=== PATIENT | female | born 1935 | race Caucasian/White ===

== ENCOUNTER → 2017-11-19 | Outpatient (CLI) | payer OTHER ==
[~2017-11-19] MED LIST: ACETAMINOPHEN325 M1 PO; AZITHROMYCIN 2250 MG PO; BANOPHEN25 M1 PO; CEFDINIR300 MG PO; DOXYCYCLINE HYC50 MG PO; DUONEB 2.5-0.5 M3 ML INH; LISINOPRIL10 MG PO; MAXZIDE-25 MG1 EACH PO; MUCINEX600 MG PO; NEBULIZER; NITROGLYCERIN1 EACH TRANSDERM; OXYTROL3.9 MG/PAT TRANSDERM; PREDNISONE 20 M20 MG PO; PROAIR RESPICL90 MCG INH; SENNA-TIME S T1 EACH PO; SERTRALINE HCL50 MG PO; STIOLTO RESPIMAT4 GM INH; SYNTHROID150 MCG PO; VERAPAMIL E.R240 M1 PO
== END ==
LOC: RAD 11:42
DX: R06.00 Dyspnea, unspecified (principal)

== ENCOUNTER 2017-12-26 11:11 | Inpatient (IN) | payer OTHER ==
[~2017-12-26] VITALS: Ht 152.4 cm; Wt 65.3 kg
--- NOTE | ~2017-12-26 | D ---
[facility] [place] [address] DISCHARGE SUMMARY Name: VICKIE HAQUE Room #: 355-P [facility] IN M.R.#: [id number] Admission: 12/26/17 Attend Phys: Kt Garcias MD Discharge: 12/31/17 Date of : 31 Report #: [id number] THIS REPORT FOR: //name// CC: Kt Garcias FINAL DIAGNOSES: 1. Chronic obstructive pulmonary disease exacerbation. 2. Hypertension. HOSPITAL COURSE: The patient was admitted with shortness of breath. She was treated for COPD exacerbation with nebulized treatments and steroids, with empiric antibiotics. Chest x-ray was negative for pneumonia. The pulmonary service followed her as well. She had no other interval complication. By the time of discharge, she was back to her baseline oxygen requirement. PHYSICAL EXAMINATION: GENERAL: On the day of discharge, her vital signs were stable. LUNGS: Clear with no wheezing. HEART: Regular. ABDOMEN: Soft, normoactive bowel sounds. EXTREMITIES: No edema. DISPOSITION: She will be discharged to home with diet and activity as tolerated. Follow up with me and Dr. Barrera in 2 weeks. She will be on her usual medications with the exception of Maxzide, prednisone taper and doxycycline for 1 week. <ELECTRONICALLY SIGNED> By: Kt Garcias MD 12/31/17 1652 1003 1013 Kt Garcias MD /nt
--- NOTE | ~2017-12-26 | EKG ---
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 : 1935 Requested By: Katheryn Dejesus Order Number: [id number] MD: Gerard Menon Measurements Intervals [place] Rate: 97 P: 80 TX: 255 QRS: 44 QRSD: 78 T: 69 QT: 326 QTc: 414 Interpretive Statements Sinus rhythm Prolonged [place] interval Probable left atrial enlargement Compared to ECG 11/16/2007 11:05:56 First degree AV block now present Sinus tachycardia no longer present Poor R-wave progression no longer present Electronically Signed On 12-26-2017 21:59:49 CDT by Gerard Menon [email or web address] <ELECTRONICALLY SIGNED> By: Gerard Menon MD 12/26/17 2159 1122 1122 Gerard Menon MD /EPI
--- NOTE | ~2017-12-26 | HC ---
[facility] [place] [address] CONSULTATION Name: VICKIE HAQUE Room #: 355- ADM IN M.R.#: [id number] Admission: 12/26/17 Attend Phys: Kt Garcias MD Discharge: Date of : 31 Report #: [id number] THIS REPORT FOR: //name// CC: Kt Garcias PRIMARY CARE PHYSICIAN: Dr. Garcias. REASON FOR REFERRAL: Dyspnea. HISTORY OF PRESENT ILLNESS: The patient is a very pleasant 82-year-old white female who presented to the Emergency Room with dyspnea. A pulmonary consultation was requested. The patient is followed longitudinally by Dr. Barrera. She has been followed for emphysema and sleep apnea. The patient was in her usual state of health until last evening she started to develop upper respiratory tract congestion, dyspnea. This morning she was awoken with increasing dyspnea along with severe paroxysmal cough. For that reason, she presented to the Emergency Room. Otherwise, denies any recent febrile illness, sore throat, nausea, vomiting, diarrhea, hematemesis, hematochezia or melena. PAST MEDICAL HISTORY: Notable for COPD, moderate impairment, baseline FEV1 0.85 liters or 55% predicted, pulmonary hypertension, history of lung nodules. She also has a history of pulmonary hypertension, previous echocardiogram in 2015 showing PA pressure of 66, pulmonary lung nodules noted in 2013. PAST SURGICAL HISTORY: Include appendectomy, mastectomy, tonsillectomy. ALLERGIES: None to medications. HOME MEDICATIONS: List reviewed. This include ProAir 2 puffs p.r.n., Lipitor, Synthroid, Prinivil, Zoloft, Synthroid, Dyazide, Verelan, recent nystatin for oral thrush, Stiolto that was started recently. FAMILY HISTORY: Noncontributory. SOCIAL HISTORY: The patient has smoked for many years, quit in 1992. She denies any alcohol use. REVIEW OF SYSTEMS: As mentioned above, otherwise, a 10-point system review negative. PHYSICAL EXAMINATION: GENERAL: She is awake, alert, in no apparent distress. [facility] [address] [place] [address] CONSULTATION Name: VICKIE HAQUE Room #: [address] [place] [address] [place] [facility].#: [id number] Admission: 12/26/17 Attend Phys: Kt Garcias MD Discharge: Date of : 33 Report #: [id number] VITAL SIGNS: Temperature is 98 degrees Fahrenheit, pulse is 95, respiratory rate 20, blood pressure 140/62 mmHg, saturation 94%. HEENT: Unremarkable. NECK: Supple, without lymphadenopathy or thyromegaly. CHEST: Breath sounds are fair bilaterally. No obvious rales or wheezes. CARDIOVASCULAR: Normal S1, S2. No murmurs or gallop. There is no JVD. There is no carotid bruit. Pulses are 2+/4+ bilaterally. ABDOMEN: Soft, nontender, no organomegaly or masses felt. GENITOURINARY: Deferred. RECTAL: Deferred. EXTREMITIES: There is no edema, cyanosis or clubbing. LABORATORY DATA: Chest x-ray is clear. CT chest is clear. Electrolytes are normal. WBC is 6500, hemoglobin 12.1 without evidence of obvious bandemia. Eosinophil count is moderately elevated at 7%. Arterial blood gas revealed pH 7.35, pCO2 of 48, pO2 99 on 6 liters O2. The patient is on chronic O2. IMPRESSION AND PLAN: 1. Progressive dyspnea in this 82-year-old white female. The etiology is probably due to exacerbation of chronic obstructive pulmonary disease. No obvious evidence of pneumonia at this time, although cannot rule out early infectious process. 2. Ysjnu-dt-ddanhwn hypercapnic hypoxic respiratory failure. She is normally on 3-4 liters of O2 at home. 3. Chronic obstructive pulmonary disease exacerbation, moderately severe impairment. 4. 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 5. History of pulmonary nodules, dating back to 2012. 6. History of breast cancer, undergoing mastectomy more than 22 years ago. 7. Hypothyroidism. We recommend broad spectrum antibiotics, corticosteroids and bronchodilators. DVT and GI prophylaxis will be recommended. Obtain sputum culture if able. Thank you for this consultation. <ELECTRONICALLY SIGNED> By: Naif Santos MD 12/27/17 1510 1630 36 Naif Santos MD /nt
--- NOTE | ~2017-12-26 | H ---
[facility] [place] [address] HISTORY AND PHYSICAL Name: VICKIE HAQUE Room #: 355-P ADM IN .R.#: [id number] Admission: 12/26/17 Attend Phys: Kt Garcias MD Discharge: Date of : 33 Report #: [id number] THIS REPORT FOR: //name// CC: Kt Garcias DATE OF SERVICE: 12/26/2017 CHIEF COMPLAINT: Shortness of breath. HISTORY OF PRESENT ILLNESS: The patient is an 82-year-old female with a history of COPD, who came to the Emergency Room with a 2-day history of cough, congestion and wheezing. She has had more shortness of breath at home and has had to increase her normal home O2 from 3 liters up to 4 liters, she was very short of breath with any low level of exertion. She has had no fever or chills. PAST MEDICAL HISTORY: COPD, is O2 dependent on 3 liters. She had a history of pulmonary aneurysm and dissecting aorta, hypertension. PAST SURGICAL HISTORY: Mastectomy, , appendectomy, hysterectomy. FAMILY HISTORY: Noncontributory. SOCIAL HISTORY: Remote tobacco history, none currently. No alcohol use. ALLERGIES: No known drug allergies. MEDICATIONS: Lisinopril, Maxzide, verapamil, Zoloft, Synthroid, albuterol, Stiolto inhaler. REVIEW OF SYSTEMS: As above. She denies headache, chest pain, abdominal pain, nausea, vomiting, diarrhea, constipation, dysuria, syncope. OBJECTIVE: VITAL SIGNS: Temperature 36.5, pulse 97, respirations 18, blood pressure 103/50. GENERAL: She is awake and alert, in no distress. HEAD AND NECK: Unremarkable. LUNGS: Faint expiratory wheezes. HEART: Regular, no murmur. ABDOMEN: Soft, normoactive bowel sounds. EXTREMITIES: No edema. NEUROLOGIC: Cranial nerves intact. Speech is fluent. Motor strength is intact. LABORATORY DATA: Fairly unremarkable. [facility] [address] [place] [address] HISTORY AND PHYSICAL Name: VICKIE HAQUE Room #: [address] [place] [address] [place] [facility]#: [id number] Admission: 12/26/17 Attend Phys: Kt Garcias MD Discharge: Date of : 31 Report #: [id number] Chest x-ray shows interstitial fibrotic changes, appear similar. CT chest shows emphysematous changes without pneumonia. ASSESSMENT: 1. Chronic obstructive pulmonary disease exacerbation. 2. Etvkh-gu-lzfzphk hypoxic respiratory failure. 3. Hypertension. PLAN: We will continue medical treatment. Dr. Santos has seen her in consultation. I will see if in another day or two of steroids and nebulized treatments, if she is improved to early discharge home. <ELECTRONICALLY SIGNED> By: Kt Garcias MD 12/27/17 1130 0908 0938 Kt Garcias MD /nt
[2017-12-26 11:12] VITALS: BP 184/83
[2017-12-26 11:44] LABS: BE(vivo) 0.3 mmol/L (-2 to +3); HCO3 26.4 mmol/L (22.0-26.0); PCO2 48.8 mmHg (35.0-45.0); pH 7.351 (7.360-7.450); sO2 97.2 % (92.0-98.0)
[2017-12-26 11:51] LABS: ABSOLUTE NEUTROPHILS 4.3 thou/uL (1.4-8.2); BASOPHILS 0.3 % (0.0-2.0); EOSINOPHILS 7.2 % (0.0-3.0); HEMATOCRIT 36.7 % (37.0-47.0); HEMOGLOBIN 12.1 gm/dL (12.0-15.0); LYMPHOCYTES 17.5 % (24.0-44.0); MCH 28.3 pg (26.0-34.0); MCHC 33.1 g/dL (28.0-37.0); MCV 85.5 fL (80.0-100.0); MONOCYTES 8.5 % (1.0-8.0); PLATELET COUNT 168 thou/uL (150-400); POLYS 66.5 % (36.0-66.0); RBC 4.29 mil/uL (4.20-5.00); RDW 14.7 % (10.5-14.5); WBC 6.5 thou/uL (4.0-11.0)
[2017-12-26 11:57] LABS: CALCIUM 9.9 mg/dL (8.5-10.1); CREATININE 0.9 mg/dL (0.6-1.0); POTASSIUM 4.2 mmol/L (3.5-5.1)
[2017-12-26] MEDS ORDERED: LISINOPRIL10 MG PO (12:52)
[2017-12-26] MEDS ORDERED: SERTRALINE HCL50 MG PO (12:53)
[2017-12-26] MEDS ORDERED: VERAPAMIL E.R240 M1 PO (12:53)
[2017-12-26] MEDS ORDERED: SYNTHROID150 MCG PO (12:54)
[2017-12-26] MEDS ORDERED: PROAIR RESPICL90 MCG INH (12:55)
[2017-12-26] MEDS ORDERED: STIOLTO RESPIMAT4 GM INH (12:55)
[2017-12-26 13:16] VITALS: BP 184/83
[2017-12-26 15:29] VITALS: BP 145/62
[2017-12-26 15:32] VITALS: BP 136/78
[2017-12-26 20:10] VITALS: BP 111/42
[2017-12-27 04:15] VITALS: BP 118/59
[2017-12-27 05:52] LABS: HEMATOCRIT 35.6 % (37.0-47.0); HEMOGLOBIN 11.7 gm/dL (12.0-15.0); MCHC 32.8 g/dL (28.0-37.0); MCV 85.4 fL (80.0-100.0); RBC 4.17 mil/uL (4.20-5.00); RDW 14.6 % (10.5-14.5)
[2017-12-27 05:53] LABS: CALCIUM 10.2 mg/dL (8.5-10.1); CREATININE 1.1 mg/dL (0.6-1.0); POTASSIUM 4.1 mmol/L (3.5-5.1)
[2017-12-27 07:42] VITALS: BP 103/50
[2017-12-27 11:38] VITALS: BP 116/63
[2017-12-27 15:48] VITALS: BP 150/69
[2017-12-27 16:51] VITALS: BP 118/88
[2017-12-27 19:30] VITALS: BP 125/62
[2017-12-28 03:10] VITALS: BP 111/56
[2017-12-28 04:53] LABS: HEMATOCRIT 31.3 % (37.0-47.0); HEMOGLOBIN 10.5 gm/dL (12.0-15.0); MCH 28.4 pg (26.0-34.0); MCHC 33.5 g/dL (28.0-37.0); MCV 84.6 fL (80.0-100.0); RBC 3.71 mil/uL (4.20-5.00); RDW 14.4 % (10.5-14.5)
[2017-12-28 04:59] LABS: CALCIUM 10.1 mg/dL (8.5-10.1); CREATININE 1.1 mg/dL (0.6-1.0); POTASSIUM 4.7 mmol/L (3.5-5.1)
[2017-12-28 07:37] VITALS: BP 123/53
[2017-12-28 11:36] VITALS: BP 131/57
[2017-12-28 15:50] VITALS: BP 163/79
[2017-12-28 19:27] VITALS: BP 132/58
[2017-12-29 03:21] VITALS: BP 121/60
[2017-12-29 08:12] VITALS: BP 167/97
[2017-12-29 11:08] VITALS: BP 132/61
[2017-12-29 16:14] VITALS: BP 119/61
[2017-12-29 20:04] VITALS: BP 151/75
[2017-12-30 03:59] VITALS: BP 125/68
[2017-12-30 07:40] VITALS: BP 145/67
[2017-12-30 11:11] VITALS: BP 142/70
[2017-12-30 15:39] VITALS: BP 124/76
[2017-12-30 20:10] VITALS: BP 134/60
[2017-12-31 04:20] VITALS: BP 141/65
[2017-12-31 08:26] VITALS: BP 149/99
[2017-12-31] MEDS ORDERED: DOXYCYCLINE HYC50 MG PO (09:57)
[2017-12-31] MEDS ORDERED: PREDNISONE 20 M20 MG PO (09:59)
[2017-12-31 10:22] VITALS: BP 149/99
[2017-12-31] MEDS ORDERED: MAXZIDE-25 MG1 EACH PO (10:43)
[2017-12-31 12:16] VITALS: BP 117/57
[2017-12-31] MEDS ORDERED: NEBULIZER (13:07)
[2017-12-31] MEDS ORDERED: DUONEB 2.5-0.5 M3 ML INH (13:07)
[2017-12-31 14:00] VITALS: BP 117/57
== END 2017-12-31 15:00 | disposition home or self-care (01) | DRG 189 ==
LOC: ER 11:11 → EROBS 12:24 → 3W 12:24 → ENTRNSPT 12-31 14:44 → EDTRNSPTSTS 12-31 14:46 → 3W 12-31 15:00
PROVIDERS: Emergency Medicine; Internal Medicine Geriatric Medicine; Internal Medicine Pulmonary Disease
DX: J96.21 Acute and chronic respiratory failure with hypoxia (principal); J44.1 Chronic obstructive pulmonary disease with (acute) exacerbation; I27.20 Pulmonary hypertension, unspecified; J96.22 Acute and chronic respiratory failure with hypercapnia; I10 Essential (primary) hypertension; E03.9 Hypothyroidism, unspecified; E78.5 Hyperlipidemia, unspecified; Z85.3 Personal history of malignant neoplasm of breast; Z79.899 Other long term (current) drug therapy; Z91.018 Allergy to other foods; Z79.51 Long term (current) use of inhaled steroids; Z99.81 Dependence on supplemental oxygen; Z90.710 Acquired absence of both cervix and uterus; Z90.12 Acquired absence of left breast and nipple; Z86.79 Personal history of other diseases of the circulatory system
CPT/HCPCS: 10879

== ENCOUNTER 2018-02-04 04:00 | Inpatient (IN) | payer OTHER ==
[~2018-02-04] VITALS: Ht 149.9 cm; Wt 67.6 kg
--- NOTE | ~2018-02-04 | EKG ---
[address] [place] [address] ELECTROCARDIOGRAM REPORT Name: VICKIE HAQUE Room #: 351-P ADM IN M.R.#: [id number] Admission: 02/04/18 Attend Phys: Sierra Thornton MD Discharge: Date of : 33 Report #: [id number] THIS REPORT FOR: //name// [facility] Test Date: 2018-02-06 Test Time: 09:33:32 Pat Name: VICKIE HAQUE Department: Room: [facility] Gender: F Entry Level Lab Technician: Niurka SCHMITT : 1935 Requested By: Kt Garcias Order Number: [id number] MD: Gaurang Sosa Measurements Intervals [place] Rate: 96 P: 80 NC: 231 QRS: 63 QRSD: 79 T: 59 QT: 345 QTc: 436 Interpretive Statements Sinus rhythm Prolonged NC interval Probable left ventricular hypertrophy Compared to ECG 02/04/2018 04:13:54 Sinus tachycardia no longer present Electronically Signed On 02-06-2018 12:52:53 CDT by Gaurang Sosa [email or web address] <ELECTRONICALLY SIGNED> By: Gaurang Sosa MD, [facility] 02/06/18 1252 2 2 Gaurang Sosa MD, [facility] /EPI
--- NOTE | ~2018-02-04 | EKG ---
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
--- NOTE | ~2018-02-04 | 2DMMODE ---
[facility] [address] [place] [address] 2 D/M-MODE ECHOCARDIOGRAM Name: VICKIE HAQUE Room #: 351-P ADM IN .R.#: [id number] Admission: 02/04/18 Attend Phys: Mercy García Discharge: Date of : 31 Date of Service: 02/04/18 1425 Report #: [id number] THIS REPORT FOR: //name// APPROVED REPORT Study performed: 02/04/2018 13:18:52 EXAM: Comprehensive 2D, Doppler, and color-flow Echocardiogram Patient Location: Bedside Room #: [facility] Status: routine BSA: 1.63 HR: 101 bpm BP: 128/61 mmHg Rhythm: Tachycardia Other Information Study Quality: Adequate Indications COPD exacerbation, LV function. Hx: HTN, HLP 2D Dimensions RVDd: 37.31 mm LVEF(%): 79.71 (>50%) IVSd: 12.06 (7-11mm) LVOT Diam: 20.33 (18-24mm) LVDd: 43.76 mm PWd: 10.27 (7-11mm) Ascending Ao: 30.43 (22-36mm) LVDs: 22.72 (25-40mm) Aortic Root: 31.78 mm Moreno's LVEF: 79.71 % Volumes Left Atrial Volume (Systole) Single Plane 4CH: 40.91 mL Single Plane 2CH: 48.92 mL Aortic Valve AoV Peak Cuong.: 1.94 m/s AO Peak Gr.: 15.00 mmHg LVOT Max P.72 mmHg AO Mean Gr.: 8.21 mmHg AO V2 Mean: 1.35 m/s LVOT Max V: 1.48 m/s AO V2 VTI: 39.26 cm CARMEN Vmax: 2.47 cm2 Mitral Valve MV Decel. Time: 242.61 ms [facility] [email or web address] [address] 2 D/M-MODE ECHOCARDIOGRAM Name: SHABNAMVICKIE Room #: 351-P [facility] IN ..#: [id number] Admission: 02/04/18 Attend Phys: Mercy García Discharge: Date of : 31 Date of Service: 02/04/18 1425 Report #: [id number] MV PHT: 70.36 ms IVRT: 69.20 ms Pulmonary Valve PV Peak Cuong.: 1.17 m/s PV Peak Gr.: 5.44 mmHg Tricuspid Valve TR Peak Cuong.: 3.36 m/s RAP Estimate: 10.00 mmHg TR Peak Gr.: 45.21 mmHg PA Pressure: 55.00 mmHg Left Ventricle The left ventricle is normal size. Mild concentric left ventricular hypertrophy. Left ventricular systolic function is hyperdynamic. LVEF is 70%. Mild diastolic dysfunction is present (impaired relaxation pattern). Right Ventricle The right ventricle is normal size. The right ventricular systolic function is normal. Atria Left atrium is mildly dilated. The right atrium size is normal. Aortic Valve Aortic valve is calcified. No aortic regurgitation is present. There is no aortic valvular stenosis. Mitral Valve Severe mitral annular calcification. There is no mitral valve regurgitation noted. Moderate mitral stenosis. Mean presssure gradient of 10mmHg. Tricuspid Valve The tricuspid valve is normal in structure. Mild tricuspid regurgitation. Estimated PAP is 55-60mmHg. Pulmonic Valve The pulmonary valve is normal in structure. Trace pulmonic regurgitation. Great Vessels The aortic root is normal in size. The ascending aorta is normal in size. IVC is dilated and collapses <50% with inspiration. [facility] [address] [place] [address] 2 D/M-MODE ECHOCARDIOGRAM Name: VICKIE HAQUE Room #: 351-P [facility] IN .R.#: [id number] Admission: 02/04/18 Attend Phys: Mercy García Discharge: Date of : 31 Date of Service: 02/04/18 1425 Report #: [id number] Pericardium There is no pericardial effusion. <Conclusion> The left ventricle is normal size. LVEF is 70%. Left atrium is mildly dilated. Aortic valve is calcified. No aortic regurgitation is present. There is no aortic valvular stenosis. Severe mitral annular calcification. There is no mitral valve regurgitation noted. Moderate mitral stenosis. Mean presssure gradient of 10mmHg. The tricuspid valve is normal in structure. Mild tricuspid regurgitation. Estimated PAP is 55-60mmHg. The pulmonary valve is normal in structure. Trace pulmonic regurgitation. There is no pericardial effusion. <ELECTRONICALLY SIGNED> By: Reuben Herman MD 02/04/18 1425 1425 1425 Reuben Herman MD /INF
--- NOTE | ~2018-02-04 | H ---
[facility] [place] [address] HISTORY AND PHYSICAL Name: VICKIE HAQUE Room #: 351-P ADM IN M.R.#: [id number] Admission: 02/04/18 Attend Phys: Sierra Thornton MD Discharge: Date of : 33 Report #: [id number] THIS REPORT FOR: //name// CC: Femi Thornton DATE OF SERVICE: 02/04/2018 CHIEF COMPLAINT: Shortness of breath. HISTORY OF PRESENT ILLNESS: The patient is an 82-year-old female who came to the Emergency Room with complaints of shortness of breath and chest pain. She has been wheezing and coughing up occasional sputum in the last several days. She had high blood pressure and a headache as well. There was one episode of vomiting en route. She was noted to have respiratory acidosis on admission, and she was placed on BiPAP overnight. A followup ABG early this morning is improved, and she is awake and alert. PAST MEDICAL HISTORY: COPD, O2 dependent. Hypertension. I believe she has a history of PSVT. PAST SURGICAL HISTORY: She has had breast cancer, mastectomy 20+ years ago, appendectomy, hysterectomy. FAMILY HISTORY: Noncontributory. SOCIAL HISTORY: She lives at home. No chronic alcohol or tobacco use. ALLERGIES: No known drug allergies. MEDICATIONS: Lisinopril, verapamil, Zoloft, Levoxyl, DuoNeb, Stiolto inhaler, hydrochlorothiazide. REVIEW OF SYSTEMS: She has had no more chest pain or headache. She also has some shortness of breath and productive cough. No abdominal pain, nausea, vomiting, diarrhea, dysuria, syncope or fall. PHYSICAL EXAMINATION: VITAL SIGNS: Temperature 36.8, pulse 98, respirations 20, blood pressure 120/49, O2 sat 96% on 3 liters nasal cannula. GENERAL: She is awake and alert, in no distress. HEAD AND NECK: Unremarkable. LUNGS: Expiratory wheezing. HEART: Regular, no murmur. ABDOMEN: Soft, normoactive bowel sounds. [facility] [address] [place] [address] HISTORY AND PHYSICAL Name: VICKIE HAQUE Room #: [facility] IN M.R.#: [id number] Admission: 02/04/18 Attend Phys: Sierra Thornton MD Discharge: Date of : 33 Report #: [id number] EXTREMITIES: No edema. NEUROLOGIC: She is alert and oriented. Strength intact. Lab and chest x-ray reviewed. ASSESSMENT: 1. Acute chronic obstructive pulmonary disease exacerbation. 2. Acute hypoxic hypercapnic respiratory failure. 3. Hypertension. 4. Pulmonary fibrosis. PLAN: She will be treated conservatively with antibiotics, steroids, nebulized treatments. We will ask Dr. Barrera to see her in consultation. I have ordered an echo to assess LV function. Lovenox has been ordered for DVT prophylaxis. <ELECTRONICALLY SIGNED> By: Kt Garcias MD 02/04/18 1139 [phone] Kt Garcias MD /héctor
[~2018-02-04 04:00] MED LIST changes: -ACETAMINOPHEN325 M1 PO; -AZITHROMYCIN 2250 MG PO; -BANOPHEN25 M1 PO; -CEFDINIR300 MG PO; -MUCINEX600 MG PO; -NITROGLYCERIN1 EACH TRANSDERM; -OXYTROL3.9 MG/PAT TRANSDERM; -SENNA-TIME S T1 EACH PO
[2018-02-04 04:01] VITALS: BP 163/80
[2018-02-04 04:24] LABS: ABSOLUTE NEUTROPHILS 8.9 thou/uL (1.4-8.2); BASOPHILS 0.8 % (0.0-2.0); EOSINOPHILS 1.2 % (0.0-3.0); HEMATOCRIT 34.6 % (37.0-47.0); HEMOGLOBIN 11.4 gm/dL (12.0-15.0); MCH 28.3 pg (26.0-34.0); MCV 85.7 fL (80.0-100.0); MONOCYTES 6.9 % (1.0-8.0); PLATELET COUNT 265 thou/uL (150-400); POLYS 80.1 % (36.0-66.0); RBC 4.04 mil/uL (4.20-5.00); RDW 14.7 % (10.5-14.5); WBC 11.1 thou/uL (4.0-11.0)
[2018-02-04 04:36] LABS: ANION GAP 9 mmol/L (7-16); BUN 35 mg/dL (7-18); CALCIUM 9.9 mg/dL (8.5-10.1); CHLORIDE 103 mmol/L (98-107); CO2 27 mmol/L (21-32); CREATININE 1.6 mg/dL (0.6-1.0); GLUCOSE 164 mg/dL (74-106); POTASSIUM 3.8 mmol/L (3.5-5.1); SODIUM 139 mmol/L (136-145)
[2018-02-04 04:37] LABS: PROTIME 10.2 Seconds (9.3-11.4)
[2018-02-04 04:40] LABS: HCO3 31.1 mmol/L (22.0-26.0); PO2 256.3 mmHg (80.0-100.0); sO2 99.4 % (92.0-98.0)
[2018-02-04 04:41] LABS: pH 7.192 (7.360-7.450)
[2018-02-04 04:44] LABS: ALBUMIN 3.5 g/dL (3.4-5.0); MAGNESIUM 2.1 mg/dL (1.8-2.4); SGOT 22 U/L (15-37); SGPT 31 U/L (30-65); TOTAL BILIRUBIN 0.5 mg/dL (<0.1-1.0); TOTAL PROTEIN 7.1 g/dL (6.4-8.2); TROPONIN-I < 0.04 ng/mL (<0.06)
[2018-02-04 04:57] LABS: URINE BILIRUBIN NEGATIVE (Negative); URINE BLOOD NEGATIVE (Negative); URINE CLARITY CLEAR; URINE COLOR YELLOW; URINE GLUCOSE-RANDOM* NEGATIVE (Negative); URINE KETONES NEGATIVE (Negative); URINE LEUKOCYTES-REFLEX NEGATIVE (Negative); URINE NITRITE-REFLEX NEGATIVE (Negative); URINE PROTEIN (DIPSTICK) TRACE (Negative); URINE SPECIFIC GRAVITY >= 1.030 (1.005-1.035); URINE UROBILINOGEN 0.2 E.U./dl (0.2-1.0)
[2018-02-04 05:55] LABS: BE(vivo) -2.6 mmol/L (-2 to +3); HCO3 24.5 mmol/L (22.0-26.0); PO2 111.8 mmHg (80.0-100.0); sO2 97.5 % (92.0-98.0)
[2018-02-04 05:56] LABS: pH 7.283 (7.360-7.450)
[2018-02-04 06:09] VITALS: BP 118/53
[2018-02-04 07:00] VITALS: BP 120/49
[2018-02-04] MEDS ORDERED: DUONEB 2.5-0.5 M3 ML INH (09:27)
[2018-02-04 10:30] LABS: BE(vivo) -0.6 mmol/L (-2 to +3); HCO3 26.7 mmol/L (22.0-26.0); PCO2 56.6 mmHg (35.0-45.0); pH 7.291 (7.360-7.450); sO2 96.2 % (92.0-98.0)
[2018-02-04] MEDS ORDERED: OXYTROL3.9 MG/PAT TRANSDERM (11:32)
[2018-02-04 12:05] VITALS: BP 128/61
[2018-02-04 18:02] VITALS: BP 119/49
[2018-02-04 19:20] VITALS: BP 106/48
[2018-02-05] VITALS: BP 115/54
[2018-02-05 03:40] VITALS: BP 102/48
[2018-02-05 04:05] LABS: HEMATOCRIT 28.3 % (37.0-47.0); MCH 28.5 pg (26.0-34.0); MCHC 33.2 g/dL (28.0-37.0); MCV 85.7 fL (80.0-100.0); RBC 3.3 mil/uL (4.20-5.00); RDW 14.4 % (10.5-14.5); WBC 4.2 thou/uL (4.0-11.0)
[2018-02-05 04:06] LABS: HEMOGLOBIN 9.4 gm/dL (12.0-15.0)
[2018-02-05 04:19] LABS: CALCIUM 9.6 mg/dL (8.5-10.1); CREATININE 1.3 mg/dL (0.6-1.0); POTASSIUM 4.1 mmol/L (3.5-5.1)
[2018-02-05 07:40] VITALS: BP 104/50
[2018-02-05 11:45] VITALS: BP 116/55
[2018-02-05 15:30] VITALS: BP 87/39
[2018-02-05 19:10] VITALS: BP 129/55
[2018-02-06 04:42] VITALS: BP 119/53
[2018-02-06 07:34] VITALS: BP 132/66
[2018-02-06 07:42] LABS: BE(vivo) 1.3 mmol/L (-2 to +3); HCO3 27.5 mmol/L (22.0-26.0); PCO2 51.4 mmHg (35.0-45.0); PO2 76.8 mmHg (80.0-100.0); pH 7.346 (7.360-7.450); sO2 94.5 % (92.0-98.0)
[2018-02-06 11:51] VITALS: BP 127/73
[2018-02-06 17:05] VITALS: BP 105/51
[2018-02-06 20:20] VITALS: BP 136/70
[2018-02-07 04:25] VITALS: BP 132/68
[2018-02-07 07:23] VITALS: BP 119/60
[2018-02-07] MEDS ORDERED: BANOPHEN25 M1 PO (09:54)
[2018-02-07] MEDS ORDERED: SENNA-TIME S T1 EACH PO (09:55)
[2018-02-07] MEDS ORDERED: MUCINEX600 MG PO (09:55)
[2018-02-07] MEDS ORDERED: NITROGLYCERIN1 EACH TRANSDERM (09:55)
[2018-02-07] MEDS ORDERED: DUONEB 2.5-0.5 M3 ML INH (09:55)
[2018-02-07] MEDS ORDERED: VERAPAMIL E.R240 M1 PO (09:56)
[2018-02-07] MEDS ORDERED: ACETAMINOPHEN325 M1 PO (09:56)
[2018-02-07] MEDS ORDERED: AZITHROMYCIN 2250 MG PO (09:57)
[2018-02-07] MEDS ORDERED: PREDNISONE 20 M20 MG PO (09:57)
[2018-02-07] MEDS ORDERED: CEFDINIR300 MG PO (09:57)
[2018-02-07 11:24] VITALS: BP 101/62
[2018-02-07 15:38] VITALS: BP 124/62
[2018-02-07 19:30] VITALS: BP 146/75
[2018-02-08 04:30] VITALS: BP 139/71
[2018-02-08 07:40] VITALS: BP 159/76
[2018-02-08 11:50] VITALS: BP 153/71
== END 2018-02-08 14:17 | DRG 189 ==
LOC: ER 04:00 → EROBS 04:58 → 3W 04:58
PROVIDERS: Emergency Medicine; Internal Medicine; Internal Medicine Geriatric Medicine; Internal Medicine Pulmonary Disease
PROC: 5A09357 Assistance with Respiratory Ventilation, Less than 24 Consecutive Hours, Continuous Positive Airway Pressure (ICD-10-PCS; principal; 2018-02-04)
PROC: 5A09357 Assistance with Respiratory Ventilation, Less than 24 Consecutive Hours, Continuous Positive Airway Pressure (ICD-10-PCS; 2018-02-05)
PROC: 5A09357 Assistance with Respiratory Ventilation, Less than 24 Consecutive Hours, Continuous Positive Airway Pressure (ICD-10-PCS; 2018-02-07)
PROC: 5A09357 Assistance with Respiratory Ventilation, Less than 24 Consecutive Hours, Continuous Positive Airway Pressure (ICD-10-PCS; 2018-02-08)
DX: J96.21 Acute and chronic respiratory failure with hypoxia (principal); J44.1 Chronic obstructive pulmonary disease with (acute) exacerbation; J96.22 Acute and chronic respiratory failure with hypercapnia; I12.9 Hypertensive chronic kidney disease with stage 1 through stage 4 chronic kidney disease, or unspecified chronic kidney disease; J84.10 Pulmonary fibrosis, unspecified; I27.20 Pulmonary hypertension, unspecified; Z66 Do not resuscitate; I25.10 Atherosclerotic heart disease of native coronary artery without angina pectoris; D64.9 Anemia, unspecified; N18.9 Chronic kidney disease, unspecified; E03.9 Hypothyroidism, unspecified; E78.5 Hyperlipidemia, unspecified; R07.9 Chest pain, unspecified; I05.0 Rheumatic mitral stenosis; Z87.891 Personal history of nicotine dependence; Z85.3 Personal history of malignant neoplasm of breast; Z98.891 History of uterine scar from previous surgery; Z90.12 Acquired absence of left breast and nipple; Z90.49 Acquired absence of other specified parts of digestive tract; Z90.710 Acquired absence of both cervix and uterus; Z79.899 Other long term (current) drug therapy; Z99.81 Dependence on supplemental oxygen; Z80.8 Family history of malignant neoplasm of other organs or systems
CPT/HCPCS: 10879

== ENCOUNTER 2018-12-27 11:04 | Inpatient (IN) | payer OTHER ==
[~2018-12-27] VITALS: Ht 149.9 cm; Wt 63.5 kg
--- NOTE | ~2018-12-27 | H ---
[facility] [address] HISTORY AND PHYSICAL Name: VICKIE HAQUE Room #: 363-P ADM IN M.R.#: [id number] Admission: 12/27/18 ������������������ Attend Phys: Sierra Viramontes MD Discharge: ������������������ Date of : 33 Report #: [id number] THIS REPORT FOR: //name// CC: Kt Viramontes DATE OF SERVICE: 12/28/2018 ATTENDING PHYSICIAN: Sierra Viramontes MD CHIEF COMPLAINT: Chest pressure and hypoxia. HISTORY OF PRESENT ILLNESS: The patient is an 83-year-old lady with known history of advanced COPD with chronic hypoxia, on supplemental oxygen at home. The patient presented to the ER with unwitnessed fall. The patient did complain of having some chest pressure and feeling short of breath. The patient had evaluation done in the ER and noted to have elevated troponin. Cardiology consult was obtained and she was reluctant to get any further workup done regarding cardiology. The patient is currently on steroids with nebulizer treatment and is feeling better this morning. She did complain of having some back pain this morning. PAST MEDICAL HISTORY: Significant for history of advanced COPD with chronic hypoxia, hypothyroidism, hyperlipidemia, breast carcinoma, and hypertension. PAST SURGICAL HISTORY: Appendectomy, x 3, hysterectomy, and mastectomy. ALLERGIES: She is not known to be allergic to any medications. MEDICATIONS: She was currently on was sertraline, levothyroxine, albuterol, lisinopril, calcium carbonate, diltiazem, triamterene/hydrochlorothiazide, and oxybutynin. SOCIAL HISTORY: The patient did smoke in the past, does drink alcohol occasionally and the patient has been living independently. REVIEW OF SYSTEMS: She did complain of having a mild cough. No nausea, vomiting, no abdominal pain or any urinary symptoms. PHYSICAL EXAMINATION: GENERAL: Pleasant elderly lady who was resting in bed, did not appear to be in any distress at the moment. She was awake, alert to place and person. VITAL SIGNS: She was afebrile with a temperature of 36.6, pulse of 98, respiratory rate 18, blood pressure 130/63, oxygen saturation 94% on supplemental oxygen at 6 liters. [facility] [address] [place] [address] HISTORY AND PHYSICAL Name: VICKIE HAQUE Room #: 363-P [facility] IN [facility]#: [id number] Admission: 12/27/18 ������������������ Attend Phys: Sierra Viramontes MD Discharge: ������������������ Date of : 33 Report #: [id number] HEENT: There was no pallor, no icterus. Mucosa was moist. LUNGS: Coarse breath sounds bilaterally. There was no wheezing or crackles. HEART: First and second heart sounds, which was irregular. ABDOMEN: Soft, nontender. Bowel sounds normally heard. EXTREMITIES: Did not reveal edema and the patient had no edema noted. LABORATORY DATA: On admission showed a white cell count of 3.8, hemoglobin 10.6, hematocrit 31.6 and a platelet count of 125. Sodium was 139, potassium 4.3, chloride 102, bicarbonate 31, BUN of 26, creatinine of 0.9 and glucose of 175. Calcium was 10.7. Troponin was 0.13. UA was clear. Chest x-ray showed emphysematous hyperinflation with interstitial fibrosis and mild vascular congestion with no consolidation noted. ASSESSMENT: 1. Chronic obstructive pulmonary disease exacerbation. 2. Suspected lower respiratory tract infection. 3. Chronic hypoxia. 4. Chest pain with elevated troponin. 5. Hypertension. PLAN: Continue the patient on nebulizer treatments and the steroids. Have a Cardiology consultation and continue on supplemental oxygen with nebulizer treatments. ��������������������������������������������� ���������������������������������������� By: ��������������������������������������������� 0908 1102 Sierra Viramontes MD /nt
[~2018-12-27 11:04] MED LIST changes: +ACETAMINOPHEN325 M1 PO; +AZITHROMYCIN 2250 MG PO; +BANOPHEN25 M1 PO; +CEFDINIR300 MG PO; +MUCINEX600 MG PO; +NITROGLYCERIN1 EACH TRANSDERM; +OXYTROL3.9 MG/PAT TRANSDERM; +SENNA-TIME S T1 EACH PO
[2018-12-27 11:06] VITALS: BP 149/65
--- NOTE | 2018-12-27 11:09 | NUR ---
XRAY RESPONDED TO TRAUMA PAGE
--- NOTE | 2018-12-27 11:09 | NUR ---
LAB RESPONDED TO TRAUMA
[2018-12-27 11:30] LABS: ABSOLUTE NEUTROPHILS 7.5 thou/uL (1.4-8.2); BASOPHILS 1.3 % (0.0-2.0); EOSINOPHILS 3.6 % (0.0-3.0); HEMATOCRIT 38.1 % (37.0-47.0); HEMOGLOBIN 12.1 gm/dL (12.0-15.0); LYMPHOCYTES 8.3 % (24.0-44.0); MCH 26.7 pg (26.0-34.0); MCHC 31.7 g/dL (28.0-37.0); MONOCYTES 5.4 % (1.0-8.0); PLATELET COUNT 136 thou/uL (150-400); POLYS 81.4 % (36.0-66.0); RBC 4.53 mil/uL (4.20-5.00); RDW 15.7 % (10.5-14.5); WBC 9.2 thou/uL (4.0-11.0)
[2018-12-27 11:33] LABS: CALCIUM 10.5 mg/dL (8.5-10.1); CREATININE 1.1 mg/dL (0.6-1.0)
[2018-12-27 11:42] LABS: ALBUMIN 3.7 g/dL (3.4-5.0); APTT 24.3 Seconds (24.5-32.8); MAGNESIUM 1.6 mg/dL (1.8-2.4); PROTIME 10.5 Seconds (9.3-11.4); TOTAL BILIRUBIN 0.5 mg/dL (<0.1-1.0); TOTAL PROTEIN 6.9 g/dL (6.4-8.2); TROPONIN-I 0.09 ng/mL (<0.06)
[2018-12-27] MEDS ORDERED: MAXZIDE-25 MG1 EACH PO (11:57)
[2018-12-27] MEDS ORDERED: CARDIZEM CD240 MG PO (11:58)
[2018-12-27] MEDS ORDERED: LISINOPRIL10 MG PO (11:59)
[2018-12-27] MEDS ORDERED: CALCIUM 500 +1 EAC5 PO (11:59)
[2018-12-27] MEDS ORDERED: PROAIR HFA8.5 GM INH (12:00)
[2018-12-27] MEDS ORDERED: STIOLTO RESPIMAT4 GM INH (12:02)
[2018-12-27 12:37] LABS: URINE BILIRUBIN NEGATIVE (Negative); URINE BLOOD TRACE (Negative); URINE CLARITY CLEAR; URINE COLOR YELLOW; URINE GLUCOSE-RANDOM* NEGATIVE (Negative); URINE KETONES TRACE (Negative); URINE LEUKOCYTES-REFLEX NEGATIVE (Negative); URINE NITRITE-REFLEX NEGATIVE (Negative); URINE PROTEIN (DIPSTICK) 2+ (Negative); URINE SPECIFIC GRAVITY 1.025 (1.005-1.035); URINE UROBILINOGEN 0.2 E.U./dl (0.2-1.0)
[2018-12-27 12:48] LABS: AMORPHOUS URATES Few /LPF (None Seen); BACTERIA-REFLEX 1-9 Few /HPF (None Seen); CASTS None Seen /LPF (None Seen); SQUAMOUS None Seen /LPF (0-3); URINE RBC None Seen /HPF (0-2); URINE WBC-REFLEX None Seen /HPF (0-5)
--- NOTE | 2018-12-27 12:50 | NUR ---
AFTER REVIEWING PATIENTS MED LIST. PT IS NOT ON BLOOD THINNERS
[2018-12-27 12:55] VITALS: BP 113/52
[2018-12-27 13:59] VITALS: BP 122/46
--- NOTE | 2018-12-27 14:43 | NUR ---
PT ORIENTED TO ROOM AND UNIT. BED LOW AND LOCKED, ANDRES RAILS UP X 3, CALL LIGHT IN REACH, DAUGHTER AT BEDSIDE. WILL CONTINUE TO ASSESS.
[2018-12-27 16:04] VITALS: BP 100/49
--- NOTE | 2018-12-27 18:38 | NUR ---
PT PULLED OUT IV AND NEW IV ESTABLISHED BY BIJAN VALENCIA.
[2018-12-27 19:26] VITALS: BP 113/49
[2018-12-28 03:43] VITALS: BP 122/60
[2018-12-28 07:27] LABS: HEMATOCRIT 31.6 % (37.0-47.0); HEMOGLOBIN 10.6 gm/dL (12.0-15.0); MCH 27.6 pg (26.0-34.0); MCHC 33.5 g/dL (28.0-37.0); MCV 82.5 fL (80.0-100.0); RBC 3.83 mil/uL (4.20-5.00); RDW 15.3 % (10.5-14.5); WBC 3.8 thou/uL (4.0-11.0)
[2018-12-28 07:42] LABS: CALCIUM 10.7 mg/dL (8.5-10.1); CREATININE 0.9 mg/dL (0.6-1.0); POTASSIUM 4.3 mmol/L (3.5-5.1); TROPONIN-I 0.13 ng/mL (<0.06)
[2018-12-28 07:47] VITALS: BP 130/63
[2018-12-28 11:30] VITALS: BP 124/72
--- NOTE | 2018-12-28 11:44 | EKG ---
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: : 1935 Requested By: Nomi Knapp Order Number: [id number] MD: Gaurang Sosa Measurements Intervals [place] Rate: 86 P: 68 IA: 237 QRS: 52 QRSD: 80 T: 62 QT: 363 QTc: 434 Interpretive Statements Sinus rhythm Prolonged [place] interval Compared to ECG 02/06/2018 09:33:32 No significant changes Electronically Signed On 12-28-2018 11:44:08 CDT by Gaurang Sosa [email or web address] ��������������������������������������������� <ELECTRONICALLY SIGNED> ���������������������������������������� By: Gaurang Sosa MD, [facility] ��������������������������������������������� 12/28/18 1144 1136 1136 Gaurang Sosa MD, [facility] /EPI
--- NOTE | 2018-12-28 11:58 | EKG ---
[address] [place] [address] ELECTROCARDIOGRAM REPORT Name: VICKIE HAQUE Room #: 363-P ADM IN M.R.#: [id number] ������������������ Admission: 12/27/18 ������������������ Attend Phys: Sierra Thornton MD Discharge: ������������������ Date of : 33 Report #: [id number] ����������������������������������������������������������������� [id number] THIS REPORT FOR: //name// [facility] Test Date: 2018-12-28 Test Time: 09:02:00 Pat Name: VICKIE HAQUE Department: Room: 363 Gender: F Technical Instructor Course Developer: CALEB : 1935 Requested By: Gaurang Sosa Order Number: [id number] MD: Gaurang Sosa Measurements Intervals [place] Rate: 95 P: 77 MT: 257 QRS: 61 QRSD: 77 T: 63 QT: 345 QTc: 434 Interpretive Statements Sinus rhythm Prolonged MT interval Compared to ECG 02/06/2018 09:33:32 No significant changes Electronically Signed On 12-28-2018 11:58:31 CDT by Gaurang Sosa [email or web address] ��������������������������������������������� <ELECTRONICALLY SIGNED> ���������������������������������������� By: Gaurang Sosa MD, [facility] ��������������������������������������������� 12/28/18 1158 0902 1 Gaurang Sosa MD, FACC /EPI
--- NOTE | 2018-12-28 14:24 | NUR ---
PT C/O SOB AND PAION IN CHEST AND BOTH ARMS. ASSESS PT WITH DR. KAUR AND INSTRUCTED TO GIVEN 0.25MCH XANAX, OBTAIN EKG AND TROPONIN. CONTACT ATTENDING DR. PENA AND INSTRUCTED NOT TO GIVEN AND NARCOTICS PO FOR PAIN BUT MAY GIVE PRN XANAX FOR ANXIETY. INFORM DR. PENA OF EKG RESULT AND INSTRUCTED NO NEED FOR REPEAT CARDIAC CONSULT. WILL CONTINUE TO ASSESS.
[2018-12-28 15:40] VITALS: BP 93/42
--- NOTE | 2018-12-28 16:29 | NUR ---
PT STATES THAT THE XANAX PO HAS HELPED HER SYMPTOMS AND SHE FEELS MUCH BETTER,
--- NOTE | 2018-12-28 16:58 | HC ---
[facility] [place] [address] CONSULTATION Name: VICKIE HAQUE Room #: 363- ADM IN .R.#: [id number] Admission: 12/27/18 ������������������ Attend Phys: Sierra Thornton MD Discharge: ������������������ Date of : 33 Report #: [id number] THIS REPORT FOR: //name// CC: Kt Thornton DATE OF SERVICE: 12/27/2018 REFERRING PHYSICIAN: Dr. Garcias. REASON FOR REFERRAL: Dyspnea. HISTORY OF PRESENT ILLNESS: The patient is an 83-year-old white female who presents to the ED with progressive dyspnea. A pulmonary consultation was requested. The patient is known to this physician. She has history of COPD along with sleep apnea. She was previously hospitalized less than a year ago. She had been doing very well until a few days prior to presentation when she started developing increased secretions. She said the secretions were thick. There was a tinge purulent with lightish greenish in color. She denies any febrile illness. She denies any chest pain. With progressive congestion, then dyspnea, she presented to the Emergency Department. Chest x-ray on admission showed small lung volumes, otherwise no obvious infiltrates. According to the ED Department, when EMS arrived the patient had not had oxygen on, though the patient states that she has been using oxygen on a regular basis. PAST MEDICAL HISTORY: COPD, moderate to severe impairment, baseline FEV1 of 0.85 liters or 55% predicted, pulmonary hypertension, group 3; history of lung nodules, previous echocardiogram showed pulmonary artery pressure around 66 mmHg, lung nodules had been noted in 2013, hypothyroidism, hyperlipidemia, breast cancer, undergoing left mastectomy 22 years ago; hypertension, previous CT chest shows bullous changes predominantly in the upper lobes bilaterally. PAST SURGICAL HISTORY: Status post , hysterectomy, appendectomy, prior breast surgery as mentioned above. ALLERGIES: None to medications. HOME MEDICATIONS: Include Zoloft, Synthroid, Stiolto, triamterene, Maxzide, Cardizem, Zestril, vitamin supplements, ProAir. [facility] [address] [place] [address] CONSULTATION Name: VICKIE HAQUE Room #: [address] [place] [address] IN ..#: [id number] Admission: 12/27/18 ������������������ Attend Phys: Sierra Thornton MD Discharge: ������������������ Date of : 33 Report #: [id number] FAMILY HISTORY: Noncontributory. SOCIAL HISTORY: The patient has smoked for many years, quit in 1992. Her son lives with her. She otherwise denies any alcohol use. REVIEW OF SYSTEMS: As mentioned above. She states that she has remained active, ambulating independently without difficulty. Her appetite has been good. She has not lost any weight. Otherwise, 10-point system review negative. PHYSICAL EXAMINATION: GENERAL: She is awake, alert, in no apparent distress. VITAL SIGNS: Temperature is 98 degrees Fahrenheit, pulse is 100, respiratory rate is 20, blood pressure 100/50 mmHg, saturation 94%. HEENT: Normocephalic, atraumatic. NECK: Supple, without any lymphadenopathy or thyromegaly. CHEST: Breath sounds are good with mild expiratory wheezes. No rales. CARDIOVASCULAR: Normal S1, S2. There is no murmur or gallop. There is no JVD. There is no carotid bruit. Pulses are 2+/4+ bilaterally. ABDOMEN: Soft, nontender, no organomegaly or masses felt. GENITOURINARY: Deferred. RECTAL: Deferred. EXTREMITIES: No edema, cyanosis or clubbing. LABORATORY DATA: Chest x-ray again is grossly unremarkable. EKG shows sinus rhythm. Influenza A and B swab is negative. UA was unremarkable except for few bacteria. Electrolytes are normal. Creatinine is normal. Liver enzymes are grossly unremarkable. WBC 9200, hemoglobin is normal, platelets are normal, no evidence of bandemia. Eosinophils are mildly elevated at 3.6%. IMPRESSION: Progressive dyspnea, cough in this 83-year-old white female who has history of chronic obstructive pulmonary disease. Suspect upper respiratory tract infection along with exacerbation of chronic obstructive pulmonary disease. 1. Chronic obstructive pulmonary disease, mildly severe impairment, previous baseline FEV1 of 0.85 liters or 55% predicted from 2018. 2. History of lung nodule 2012, likely benign. 3. Pulmonary hypertension, previous echo from 2016 showed pulmonary artery pressure around 66 mmHg. 4. Jfapn-jr-uwhewux hypercapnic hypoxic respiratory failure, she is normally on 3-4 liters of O2 at home. 5. Hypertension. 6. Hypothyroidism. 7. Remote history of breast cancer, status post left mastectomy. 8. Mildly elevated troponin, it is likely due to respiratory distress, myocardial demand. [address] [address] CONSULTATION Name: VICKIE HAQUE Room #: 363-P ADM IN M.R.#: [id number] Admission: 12/27/18 ������������������ Attend Phys: Sierra Thornton MD Discharge: ������������������ Date of : 33 Report #: [id number] RECOMMENDATION: Broad spectrum antibiotics, corticosteroids and bronchodilators will be initiated. Mucolytics will be started. DVT and GI prophylaxis recommended. In the past, the patient has a history of sleep apnea. This will be readdressed later when the patient is stable. Thank you for this consultation. ��������������������������������������������� <ELECTRONICALLY SIGNED> ���������������������������������������� By: Naif Santos MD ��������������������������������������������� 12/28/18 1658 1756 1228 Naif Santos MD /nt
--- NOTE | 2018-12-28 18:54 | NUR ---
BEDSIDE REPORT GIVEN TO FELIPE VALENCIA.
[2018-12-28 20:09] VITALS: BP 104/45
--- NOTE | 2018-12-29 01:24 | EKG ---
[address] [address] ELECTROCARDIOGRAM REPORT Name: SHABNAMVICKIE Lizzy Room #: 363-P ADM IN M.R.#: [id number] ������������������ Admission: 12/27/18 ������������������ Attend Phys: Sierra Thornton MD Discharge: ������������������ Date of : 33 Report #: [id number] ����������������������������������������������������������������� [id number] THIS REPORT FOR: //name// [facility] Test Date: 2018-12-28 Test Time: 14:05:07 Pat Name: VICKIE HAQUE Department: Room: 363 Gender: F Taxicab Coordinator: LISA : 1935 Requested By: Naif Santos Order Number: [id number] MD: Reuben Herman Measurements Intervals [place] Rate: 97 P: 80 TN: 243 QRS: 65 QRSD: 83 T: 69 QT: 357 QTc: 454 Interpretive Statements Sinus rhythm Prolonged TN interval left ventricular hypertrophy Compared to ECG 12/28/2018 09:02:00 No significant changes Electronically Signed On 12-29-2018 1:24:42 CDT by Reuben Herman [email or web address] ��������������������������������������������� <ELECTRONICALLY SIGNED> ���������������������������������������� By: Reuben Herman MD ��������������������������������������������� 12/29/18 0124 1405 1405 Reuben Herman MD /CHRISTIANO
[2018-12-29 03:48] VITALS: BP 127/52
--- NOTE | 2018-12-29 06:21 | NUR ---
ASSUMED CARE OF PT AT 1900. A&Ox4, COOPERATIVE. VS STABLE, SR ON TELE. BP'S SOFT BUT ASYMPTOMATIC. PT STATED HER BPs ARE USUALLY LOWER. DENIED PAIN AND DIFFICULTY BREATHING. DID C/O INDIGESTION, PT TOLERATED W/ SITTING UP, NO MEDS GIVEN. XANAX AND TYLENOL GIVEN 1X EACH, PT ABLE TO SLEEP. DAUGHTER AND SON WAS AT BEDSIDE FOR 2 HOURS. PT ABLE TO REST. PROGRESSING TOWARDS POC GOALS.
[2018-12-29 07:19] VITALS: BP 127/52
[2018-12-29 08:39] LABS: HEMATOCRIT 29.8 % (37.0-47.0); MCH 27.3 pg (26.0-34.0); MCHC 33.5 g/dL (28.0-37.0); MCV 81.5 fL (80.0-100.0); RBC 3.65 mil/uL (4.20-5.00); RDW 15.2 % (10.5-14.5)
[2018-12-29 08:48] LABS: CALCIUM 10.4 mg/dL (8.5-10.1); CREATININE 1.2 mg/dL (0.6-1.0); POTASSIUM 4.8 mmol/L (3.5-5.1)
--- NOTE | 2018-12-29 09:58 | NUR ---
ASSESSMENT: CM REVIEWED CHART AND MET WITH PATIENT AND HER DAUGHTER AT THE BEDSIDE. PT IS ALERT AND ORIENTED X4. PT REPORTS SHE LIVES IN A HOUSE AND HER SON STAYS WITH HER. PT REPORTS HAVING ONE STEP TO ENTER THE HOME AND NO STEPS ONCE INSIDE. PT REPORTS SHE NORMALLY AMBULATES INDEPENDENTLY. PT REPORTS SHE WEARS CONTINUOUS OXYGEN AT HOME AND IS ON 4L AND SUPPLIED THROUGH [employer]. PT REPORTS SHE ALSO HAS A NEBULIZER AT HOME. PT REPORTS SHE HAS BEEN TO [facility] IN THE PAST AND ENJOYED IT. PT REPORTS SHE IS NOT SURE IF SHE HAD HH AFTER. CM DISCUSSED ROLE. PT DOES NOT ANTICIPATE HAVING ANY NEEDS AT DISCHARGE. PT STATING HER DAUGHTER IS AN RN AND LIVES THREE BLOCKS AWAY AND HELPS ALSO. CM WILL CONTINUE TO FOLLOW TO ASSIST NEEDED.
[2018-12-29 11:46] VITALS: BP 130/56
--- NOTE | 2018-12-29 12:11 | HC ---
[facility] [place] [address] CONSULTATION Name: VICKIE HAQUE Room #: 363-[facility] IN .R.#: [id number] Admission: 12/27/18 ������������������ Attend Phys: Sierra Thornton MD Discharge: ������������������ Date of : 33 Report #: [id number] THIS REPORT FOR: //name// CC: Kt Thornton REASON FOR CONSULTATION: Elevated troponin. HISTORY OF PRESENT ILLNESS: The patient is an 83-year-old woman with severe chronic hypoxemic respiratory failure, on continuous high flow oxygen. Her history includes peptic ulcer disease, hypertension, moderate coronary disease by prior angiography and PSVT. She had multiple episodes of chest pain through the years. She reports this typically occurs with exacerbation in her lung disease and this presentation she reports is no different. Over the past several days, she has had cough productive of nasty greenish sputum. She has had fevers and chills and worsening exertional breathlessness. She got up to use the bathroom today and the next thing she realized that she ended up on the floor. Her son came to her assistance. Paramedics were summoned and when they arrived, she was disconnected from her oxygen concentrator, was severely low oxygen saturations. She reports on her own she has increased her oxygen flow rates. When her oxygen levels are low she describes a chest pressure-like feeling, this also occurs with coughing, which she has been doing over the past couple of days. Prior coronary angiography demonstrated dlmh-li-uazcfawz coronary artery disease and has been treated medically. She denies heart failure symptoms including orthopnea or paroxysmal nocturnal dyspnea. No history of palpitations. MEDICATIONS: Include albuterol, Synthroid 125 mcg daily, lisinopril 10 mg daily, sertraline 100 mg daily, Stiolto inhaler 2 puffs daily, Dyazide 1 tablet daily, verapamil 240 mg daily. PAST MEDICAL HISTORY: Medical records have been reviewed and include history of severe COPD with an FEV1 of 0.62 by pulmonary function studies in March of last year, history of dyslipidemia, pulmonary hypertension, pulmonary nodules, appendectomy, mastectomy, tonsillectomy. SOCIAL HISTORY: She is a former smoker, she quit in 1992. FAMILY HISTORY: Unremarkable for premature coronary disease. REVIEW OF SYSTEMS: All systems negative except as that noted above. PHYSICAL EXAMINATION: GENERAL: A pleasant woman who is alert, in no distress. VITAL SIGNS: Blood pressure is 120/46, heart rate of 70 and regular. Her saturations at rest are 94%, when she starts talking her saturations drop into the high 80s. She is afebrile. [address] [address] CONSULTATION Name: VICKIE HAQUE Room #: 363-P [facility] IN M.R.#: [id number] Admission: 12/27/18 ������������������ Attend Phys: Sierra Thornton MD Discharge: ������������������ Date of : 33 Report #: [id number] HEENT: There are neither xanthelasma, subcutaneous xanthomata, oral mucosal or digital cyanosis or kyphoscoliosis present. CHEST: Reveals a prolonged expiratory phase. Distant breath sounds. CARDIAC: Regular rate and rhythm with an increased pulmonic closure sound. ABDOMEN: Soft and nontender. EXTREMITIES: Without cyanosis, clubbing or edema. Radial pulses are 2+. NEUROLOGIC: She is alert with a nonfocal exam. LABORATORY DATA: EKG sinus rhythm with full PA interval, otherwise normal tracing. Sodium 142, potassium 4.0, creatinine 1.1, calcium 10.5. Troponin 0.09. ProBNP of 474. White count 9.2, hemoglobin 12, hematocrit 38, platelet count 136 with 81% neutrophils. Chest x-ray demonstrates emphysematous changes with interstitial fibrosis. IMPRESSION: 1. Hypoxemic respiratory failure; chronic obstructive pulmonary disease exacerbation. 2. Probable bronchitis versus lower respiratory tract infection. 3. Severe chronic obstructive pulmonary disease with pulmonary hypertension, FEV1 0.62 liters. 4. Small troponin rise consistent with supply demand mismatch in the setting of severe hypoxemia. 5. Moderate coronary disease by prior angiography; normal ejection fraction. 6. Hypertension. 7. Paroxysmal supraventricular tachycardia. 8. Dyslipidemia. RECOMMENDATIONS: The patient presents with a history of longstanding intermittent chest pressure, typically occurring with exacerbations in her lung disease and associated hypoxemia. This recent presentation is no different. Paramedics found her without oxygen connected and severely low oxygen saturations. I have discussed with her the possibility of stress testing versus angiography, neither of which she is interested in. She does concur with the likelihood that this current presentation represents exacerbation or worsening of her underlying already severe lung disease. ��������������������������������������������� <ELECTRONICALLY SIGNED> ���������������������������������������� By: Gaurang Sosa MD, FACC ��������������������������������������������� 12/29/18 1211 1417 0207 Gaurang Sosa MD, FACC /nt
[2018-12-29 15:38] VITALS: BP 109/45
--- NOTE | 2018-12-29 18:25 | NUR ---
ASSUMED PATIENT CARE AT 0700. A/O X4. NO SOB NOTED ON 4L/NC. AMBULATED IN ROOM. PROGRESSING TOWARDS POC GOALS.
[2018-12-29 20:30] VITALS: BP 110/44
[2018-12-30 04:40] VITALS: BP 114/57
--- NOTE | 2018-12-30 04:57 | NUR ---
Patient remains on home dose of 4L NC this shift. Patient slightly wheezey in upper bilateral lung zambrano and diminished in lower lung zambrano/bases around 2029 this shift. When assessed at 0000 and 0400, patient was clear and diminshed in all lung zambrano. Patient has complained of no SOB. Patient asked of any pain multiple times this shift. Patient has had no pain to report, and has been resting comfortably. Patient seems to be progressing toward plan of care goals.
[2018-12-30 07:14] VITALS: BP 133/73
[2018-12-30] MEDS ORDERED: LIPITOR 20 MG T20 M1 PO (08:53)
[2018-12-30] MEDS ORDERED: ASPIR 8181 MG PO (08:53)
[2018-12-30] MEDS ORDERED: AZITHROMYCIN 2250 MG PO (08:53)
[2018-12-30] MEDS ORDERED: PREDNISONE 20 M20 MG PO (08:53)
[2018-12-30] MEDS ORDERED: CEFDINIR300 MG PO (08:53)
[2018-12-30] MEDS ORDERED: IMDUR 60 MG TAB60 M1 PO (08:53)
[2018-12-30 09:00] VITALS: BP 133/73
--- NOTE | 2018-12-30 13:25 | NUR ---
ASSUMED PATIENT CRAE AT 0700. A/O X4. PLEASANT. AMBULATED IN ROOM. NO SOB. PROGRESSING TOWARDS POC GOALS, DC TO HOME NOW.
--- NOTE | 2018-12-30 15:54 | D ---
[facility] [place] [address] DISCHARGE SUMMARY Name: VICKIE HAQUE Room #: 363-P [facility] IN M.R.#: [id number] Admission: 12/27/18 ������������������ Attend Phys: Sierra Thornton MD Discharge: 12/30/18 ������������������ Date of : 33 Report #: [id number] THIS REPORT FOR: //name// CC: Kt Thornton FINAL DIAGNOSES: 1. Chronic obstructive pulmonary disease exacerbation. 2. Paroxysmal supraventricular tachycardia. 3. Coronary artery disease. HOSPITAL COURSE: The patient was admitted with chest pain, most of her symptoms are related to severe COPD. She has a known FEV1 of 0.62 liters. She was treated for COPD exacerbation with steroids, nebulized treatments and her usual home medication. Cardiology service saw her, but did not feel that invasive cardiac evaluation was indicated. The plan was medical treatment for coronary artery disease. She had no other interval complication. With routine treatment, her symptoms improved. PHYSICAL EXAMINATION: On the day of discharge; GENERAL: She was awake and alert. VITAL SIGNS: Stable. LUNGS: Clear. HEART: Regular. ABDOMEN: Soft, normoactive bowel sounds. EXTREMITIES: No edema. DISPOSITION: She is discharged to home with diet and activity as tolerated, resume all home medications. She will finish a course of Omnicef, Zithromax and prednisone taper. Follow up with me in a month. ��������������������������������������������� <ELECTRONICALLY SIGNED> ���������������������������������������� By: Kt Garcias MD ��������������������������������������������� 12/30/18 1554 0929 1207 Kt Garcias MD /héctor
== END 2018-12-30 13:29 | disposition home or self-care (01) | DRG 189 ==
LOC: ER 11:04 → 3W 13:11 → EROBS 13:11 → 3W 14:21
PROVIDERS: Emergency Medicine; Internal Medicine; Internal Medicine Pulmonary Disease; ADMIT Internal Medicine
DX: J96.21 Acute and chronic respiratory failure with hypoxia (principal); J44.1 Chronic obstructive pulmonary disease with (acute) exacerbation; I47.1 Supraventricular tachycardia; J96.22 Acute and chronic respiratory failure with hypercapnia; E03.9 Hypothyroidism, unspecified; E78.5 Hyperlipidemia, unspecified; N18.9 Chronic kidney disease, unspecified; E83.42 Hypomagnesemia; I12.9 Hypertensive chronic kidney disease with stage 1 through stage 4 chronic kidney disease, or unspecified chronic kidney disease; I27.23 Pulmonary hypertension due to lung diseases and hypoxia; I25.10 Atherosclerotic heart disease of native coronary artery without angina pectoris; Z85.3 Personal history of malignant neoplasm of breast; Z87.891 Personal history of nicotine dependence; Z98.891 History of uterine scar from previous surgery; Z87.11 Personal history of peptic ulcer disease; Z90.12 Acquired absence of left breast and nipple; Z90.49 Acquired absence of other specified parts of digestive tract; Z90.710 Acquired absence of both cervix and uterus; Z79.899 Other long term (current) drug therapy; Z80.8 Family history of malignant neoplasm of other organs or systems
CPT/HCPCS: 10879

== ENCOUNTER → 2019-01-05 | Outpatient (CLI) | payer OTHER ==
[~2019-01-05] MED LIST changes: +ASPIR 8181 MG PO; +CALCIUM 500 +1 EAC5 PO; +CARDIZEM CD240 MG PO; +IMDUR 60 MG TAB60 M1 PO; +LIPITOR 20 MG T20 M1 PO; +PROAIR HFA8.5 GM INH
== END ==
LOC: ULTRA 14:34
DX: M79.89 Other specified soft tissue disorders (principal); R06.02 Shortness of breath

== ENCOUNTER 2019-11-16 08:49 | Inpatient (IN) | payer OTHER ==
[2019-11-16] VITALS (12 sets, daily range): BP systolic 131–167; BP diastolic 48–80
[~2019-11-16] VITALS: Ht 149.9 cm; Wt 61.2 kg
[2019-11-16 09:09] LABS: ABSOLUTE NEUTROPHILS 4.5 thou/uL (1.4-8.2); BASOPHILS 1.4 % (0.0-2.0); EOSINOPHILS 7.8 % (0.0-3.0); HEMATOCRIT 34.8 % (37.0-47.0); HEMOGLOBIN 10.8 gm/dL (12.0-15.0); LYMPHOCYTES 11.8 % (24.0-44.0); MCH 26.5 pg (26.0-34.0); MCV 85.4 fL (80.0-100.0); MONOCYTES 8.9 % (1.0-8.0); PLATELET COUNT 159 thou/uL (150-400); POLYS 70.1 % (36.0-66.0); RBC 4.08 mil/uL (4.20-5.00); RDW 16.5 % (10.5-14.5); WBC 6.4 thou/uL (4.0-11.0)
[2019-11-16 09:17] LABS: ANION GAP 4 mmol/L (7-16); BUN 10 mg/dL (7-18); CALCIUM 8.9 mg/dL (8.5-10.1); CHLORIDE 106 mmol/L (98-107); CO2 34 mmol/L (21-32); CREATININE 0.8 mg/dL (0.6-1.0); GLUCOSE 91 mg/dL (74-106); POTASSIUM 3.1 mmol/L (3.5-5.1); SODIUM 144 mmol/L (136-145)
[2019-11-16 09:26] LABS: SGOT 12 U/L (15-37); SGPT 14 U/L (30-65); TOTAL BILIRUBIN 0.5 mg/dL (<0.1-1.0); TOTAL PROTEIN 5.9 g/dL (6.4-8.2); TROPONIN-I <0.06 ng/mL (<0.06)
[2019-11-16 09:30] LABS: BE(vivo) 3.4 mmol/L (-2 to +3); HCO3 30.1 mmol/L (22.0-26.0); PCO2 VENOUS 56.3 mmHg (41.0-51.0)
[2019-11-16] MEDS ORDERED: TIROSINT112 MCG PO (10:39)
[2019-11-16] MEDS ORDERED: OXYBUTYNIN 5 MG5 M2 PO (10:41)
--- NOTE | 2019-11-16 13:44 | NUR ---
ATTEMPTED TO CALL REPORT, SPOKE WITH TANG WHO STATED THEY ARE NOT READY TO TAKE REPORT YET THE SAME NURSE WILL BE ACCEPTING A NEW PT FROM ER AT THIS TIME
--- NOTE | 2019-11-16 14:17 | NUR ---
ATTEMPTED TO CALL REPORT AND SPOKE TO TANG WHO STATED NURSE IS STILL WORKING WITH OTHER NEW PT HE RECEIVED AND NURSE WILL CALL BACK WHEN ABLE. CHARGE NURSE CAROLYNE MADE AWARE
--- NOTE | 2019-11-16 16:58 | NUR ---
chart review. pt new to [facility] this afternoon. pt is a & o x 3, pleasant and able to make her needs now. daughter corrina at bedside. o2 noted per nasal cannel. intro to dcp, and transition of . " just panic when i cant breathe. 3 L o2 at rest and 4 L o2 with active at home. o2 from [employer] and i might want to change company. manage own medication at home. live with 1 son, have 2 son irina and garo and 2 daughter corrina and earnest. have cane walker, nebulizer which i don't use much it makes my anxious and throat hurt. sit at computer playing Play[employer]. was driving till 2 months ago. no hh in past, have [facility] my last time i was here in hospital. "/erick. education on btx to rise or brush teeth after tx can help with sore mouth and throat after nebulizer tx. " ok that is good to know thank you for visiting"/pt. will cont following as needed for dc needs.
--- NOTE | 2019-11-16 17:02 | NUR ---
1620- NURSE CALLED ED TO SEE IF 1400 MEDICATIONS WERE GIVEN, UNKNOWN. NURSE WAS NOT AVAILABLE. NURSE TO CALL BACK. 1640- NURSE CALLED ED BACK, NO ANSWER. WILL CALL BACK.
--- NOTE | 2019-11-16 17:58 | NUR ---
PT ADMITTED FROM THE ED FROM NURSE WEI. PT IS HAVING NO DIFFICULTY BREATHING ON 6L NC. RT BROUGHT PT HUMIDIFICATION AND LOWERED O2 TO 5 LITERS. PT BREATHING WITH NO DIFFICULITY. PT EDUCATED FAMILY ON PURSED LIP BREATHING. FAMILY AT BEDISDE INFORMED AND EDUCATED ON PLAN OF CARE. WILL CONTINUE TO MONITOR.
[2019-11-17] VITALS: BP 139/61
[2019-11-17 04:00] VITALS: BP 158/57
--- NOTE | 2019-11-17 07:35 | NUR ---
Received report from offgoing RN and assumed patient care. Patient is AAOX4 and on 5L nasal canula. Patient had a restful night and vs remained stable. No acute events occurred during this shift. Patient is progressing towards goal as evidenced by improved oxygenation status.
--- NOTE | 2019-11-17 08:19 | EKG ---
[facility] [place] [address] ELECTROCARDIOGRAM REPORT Name: VICKIE HAQUE Room #: 250-P ADM IN M.R.#: [id number] Admission: 11/16/19 Attend Phys: Kt Garcias MD Discharge: Date of : 33 Report #: [id number] THIS REPORT FOR: cc: Kt Garcias MD, David W. MD Couchonnal,Gerard Taylor MD ~ THIS REPORT FOR: //name// [facility] ED Test Date: 2019-11-16 Test Time: 09:05:19 Pat Name: VICKIE HAQUE Department: Room: [facility] Gender: F Nursing Education Consultant: kf : 1935 Requested By: Stevie Rankin Order Number: [id number] MD: Gerard Menon Measurements Intervals [place] Rate: 77 P: 70 W[place]: 210 QRS: 37 QRSD: 80 T: 63 QT: 393 QTc: 445 Interpretive Statements Sinus rhythm Anteroseptal infarct, age indeterminate Compared to ECG 12/28/2018 14:05:07 Myocardial infarct finding now present First degree AV block no longer present Left ventricular hypertrophy no longer present Electronically Signed On 11-17-2019 8:18:13 MANUFACTURING QUALITY ENGINEER by Gerard Menon [email or web address] <ELECTRONICALLY SIGNED> By: Gerard Menon MD 11/17/19817 4 4 Gerard Menon MD /EPI
[2019-11-17 11:31] VITALS: BP 115/46
[2019-11-17 12:00] VITALS: BP 114/49
--- NOTE | 2019-11-17 13:49 | H ---
[facility] [place] [address] HISTORY AND PHYSICAL Name: VICKIE HAQUE Room #: 250-P ADM IN M.R.#: [id number] Admission: 11/16/19 Attend Phys: Kt Garcias MD Discharge: Date of : 33 Report #: [id number] THIS REPORT FOR: //name// CC: Kt Santos DATE OF SERVICE: 11/16/2019 CHIEF COMPLAINT: Shortness of breath and congested cough. HISTORY OF PRESENT ILLNESS: The patient is an 84-year-old female admitted to the Emergency Room from home with progressive shortness of breath. Over the last 2-3 days, she has had a progressive productive cough of thick yellow-tinged sputum at times. She denied any fever or chills. She has been more short of breath and was apparently trying to receive additional oxygen through 2 different oxygen canisters at home. Her O2 sats were in the 80s when EMS arrived and brought her to the Emergency Room, but it quickly improved with a nonrebreather and subsequent nebulized treatment. PAST MEDICAL HISTORY: COPD, pulmonary hypertension, coronary artery disease. She has had several admissions for bronchitis and COPD exacerbation over the last 2 years. PAST SURGICAL HISTORY: Hysterectomy. FAMILY HISTORY: Noncontributory. SOCIAL HISTORY: Remote smoker. No chronic alcohol or tobacco use. Lives with her daughter. ALLERGIES: None. MEDICATIONS: Oxybutynin, Levoxyl, DuoNeb, ProAir, lisinopril, diltiazem, Maxzide, Stiolto, Zoloft. REVIEW OF SYSTEMS: Denies headache, chest pain, shortness of breath, abdominal pain, dysuria, myalgias, syncope or fall. OBJECTIVE: VITAL SIGNS: Temperature 36.6, pulse 55, respirations 20, blood pressure 131/61, O2 sat 98% on 4 liters nasal cannula. GENERAL: Awake and alert, in no distress. LUNGS: There is faint expiratory wheezing or rhonchi in the right mid to lower lungs. HEART: Regular. ABDOMEN: Soft, normoactive bowel sounds. [facility] [address] [place] [address] HISTORY AND PHYSICAL Name: VICKIE HAQUE Room #: [facility] IN M.R.#: [id number] Admission: 11/16/19 Attend Phys: Kt Garcias MD Discharge: Date of : 33 Report #: [id number] EXTREMITIES: No edema. NEUROLOGIC: Cranial nerves intact. Speech is fluent. Motor strength intact throughout. Alert and oriented. IMAGING: CT chest and chest x-ray all reviewed. ASSESSMENT: 1. Chronic obstructive pulmonary disease exacerbation. 2. Coronary artery disease. 3. Pulmonary hypertension. PLAN: Empiric antibiotic and COPD treatment as well as a BNP and additional one time Lasix for now. A chest x-ray suggests maybe some pulmonary edema. <ELECTRONICALLY SIGNED> By: Kt Garcias MD 11/17/19 1349 1359 1433 Kt Garcias MD /hétcor
--- NOTE | 2019-11-17 16:14 | NUR ---
PT ALERT AND ORIENTED. RT TREATMENT PROVIDED SCHEDULED. ASSESSMENT CHARTED. DENIEF HAVING PAIN OR DISCOMFORT. SEEN BY DR. YOUNGBLOOD. NEW ORDERS NOTED. WILL CONTINUE TO MONITOR.
[2019-11-17 20:15] VITALS: BP 122/54
--- NOTE | 2019-11-18 05:24 | NUR ---
Pt's daughter was at the bedside last night and helped pt get cleaned up, by her request. Pt is on 5 L/m oxygen via Hi Flow nasal cannula, she does have a strong, congested cough, with mild SOA noted. Pt requested/received benadryl at HS to help her rest. Pt wears a brief for stress incontinence and assists with her cares. The bed is in the low/locked position, the sidrails are up x 4, the call light is within reach, and she has made no attempt to get out of bed. Will continue to monitor.
[2019-11-18 08:00] VITALS: BP 123/66
[2019-11-18 16:00] VITALS: BP 123/67
--- NOTE | 2019-11-18 18:21 | NUR ---
ASSUMED CARE OF PT AT 0700, PT IS A GCS OF 15. DENIES ANY DISCOMFORT AT THIS TIME. PT STATES FEELING BETTER TODAY THAN YESTERDAY. CONT TO NEED O2 AT 5L NC. PT RESTING IN BED WATCHING TV.
[2019-11-18 21:00] VITALS: BP 125/60
--- NOTE | 2019-11-18 21:15 | NUR ---
PT TRANSFERED TO [facility] 407, DAUGHTER PRESENT DURING TRANSFER, WITH ALL OF PT BELONGINGS. PT IN WHEELED IN WC, WITH O2 AT 6L BY NASAL CANNULA AND STABLE DURING TRANSFER.
[2019-11-18 21:35] VITALS: BP 117/58
--- NOTE | 2019-11-19 04:32 | NUR ---
Pt transferred from ICU approx 2100. A/OX4, oriented to the unit and room. VSS. Up with SBA to BSC. Denies pain on assessment. LAC IV patent and saline locked. On oxygen 4L/NC 95% per dtr don't titrate oxygen down only up d/t to pt's condition. Pt encouraged to call for help and doing so. Resting quietly at this time w/o any distress,will continue to monitor pt.
[2019-11-19 07:24] VITALS: BP 118/62
--- NOTE | 2019-11-19 11:53 | NUR ---
ASSUMED PATIENT CARE AT 0700. PATIENT IS AOX4 AND PLEASANT. PATIENT IS COUGHING A LOT BUT NOT BRINGING ANYTHING UP THAT NURSING STAFF HAS NOTICED. PATIENT DENIES PAIN UNLESS SHE IS COUGHING BUT DIDN'T REQUEST ANY TYLENOL. PATIENT IS NOT A FALL RISK BUT KNOWS TO CALL FOR HELP DUE TO NEEDING O2. CALL LIGHT WITHIN REACH.
--- NOTE | 2019-11-19 14:08 | NUR ---
ELEONORA reviewed chart and spoke with nursing. Pt was [facility] and is progressing towards goals for discharge. Recommendation made for pt to have HH services. ELEONORA met with pt and family at bedside to discuss discharge plan. Pt states she is agreeable with HH. Options provided. No preference voiced for HH provider. ELEONORA confirmed pt's home address and phone number. Pt's PCP is Dr. Garcias. Pt states she has Medicare Part A. [facility] [employer] is the only insurance listed. ELEONORA notified UR RN. ELEONORA is following to assist as needed with discharge planning.
[2019-11-19 15:52] VITALS: BP 128/66
[2019-11-19 19:51] VITALS: BP 127/61
--- NOTE | 2019-11-20 04:50 | NUR ---
Assumed pt care at 1900. Pt is A/OX4, VSS. Up with SBA. C/o non cardiac chest pain r/t coughing medicated with Tylenol with relief reported. On 5L high flow oxygen. SOA on exertion noted. Has a loose cough with white phlegm. Resting confortably w/o distress at this time, will continue to monitor pt.
[2019-11-20 07:10] VITALS: BP 173/79
--- NOTE | 2019-11-20 15:55 | NUR ---
DISCHARGE PLANNING. ANTICIPATED WEEKEND DISCHARGE PLANNED. HOME WITH HOME HEALTH SERVICES. PATIENT REFERRAL FAXED TO [facility]. CALL PLACED TO [facility] INTA[facility] TO NOTIFY. SHOULD PATIENT BE CLEARED FOR DISCHARGE AND HOME HEALTH ORDERS COMPLETED, PLEASE FAX DISCHARGE ORDERS AND DISCHARGE SUMMARY TO [facility]. [facility] [place] CONTACT NUMBER IS [phone] FAX NUMBER IS [phone]. THANK YOU.
[2019-11-20 15:59] VITALS: BP 173/79
--- NOTE | 2019-11-20 16:03 | NUR ---
SW reviewed chart and spoke with nursing. Pt is progressing towards goals for discharge. Discharge home is anticipated for tomorrow. Pt would benefit from HH services. No preference voiced of HH provider. Referral faxed to [facility]. Pt does have Medicare Part A as primary. Contact info for HH placed in pt's discharge summary. Final discharge orders/summary will need to be faxed when available. SW is available to assist as needed with discharge planning. KRISTIE --
--- NOTE | 2019-11-20 19:40 | NUR ---
ASSUMED CARE OF PATIENT AT 0715, PATIENT ALERT AND ORIENTED X 4, UP AD SHILOH IN HER ROOM. O2 AT 5 LITERS/NC HIGH FLOW IN PLACE. ALANNAH. LUNGS COARSE, COUGH WITH SMALL SPUTUM YELLOW IN COLOR. PATIENT C/O BACK PAIN, TYLENOL 650MG WITH GOOD RELIEF. LEFT IV INFILTRATED, NEW IV RIGHT FOREARM OBTAINED. BLOOD SUGAR MONITORING ORDERED DUE TO IV STEROIDS. POSSIBLE DISCHARGE TOMORROW TO HOME. WILL CONTINUE TO MONITOR.
[2019-11-20 21:02] VITALS: BP 137/71
--- NOTE | 2019-11-21 02:33 | NUR ---
ASSUMED CARE OF PT AT 1900HRS. PT AOX4 AND LETS NEEDS BE KNOWN. PT IS INDEPENDENT AND UP AD SHILOH. HFNC CONTINUED AT 4L. PT DENIES PAIN, NAUSEA OR SOA. POSSIBLE DC IN THE AM. PT WAS ABLE TO SLEEP PART OF THE SHIFT. VSS AND NO S/S OF ACUTE DISTRESS. WILL CONTINUE TO MONITOR.
[2019-11-21 07:40] VITALS: BP 144/65
[2019-11-21 15:19] VITALS: BP 125/58
[2019-11-21 19:20] VITALS: BP 142/68
--- NOTE | 2019-11-21 19:50 | NUR ---
ASSUMED CARE OF PATIENT AT 0715, PATIENT ALERT AND ORIENTED X4. UP AD SHILOH IN ROOM. O2 AT 5 LITERS/NC HI-FLOW. COUGH NOTED. C/O PAIN BACK AREA DUE TO COUGHING, SHE RECIEVED TYLENOL 650 MG X 1 THIS SHIFT. WILL CONTINUE TO MONITOR.
--- NOTE | 2019-11-22 02:53 | NUR ---
PATIENT ALERT AND ORIENTED X4. UP ADLIB IN ROOM WITH 02NC ON 5L. SOME SOA NOTED WITH EXERTION. DAUGHTER AT BEDSIDE IN EARLY EVENING. BLOOD SUGAR MONITORED PER ORDER AND NO INSULIN NEEDED. NO C/O PAIN. PATIENT ANXIOUS TO GO HOME. VERY PLEASANT AND COOPERATIVE. NON PRODUCTIVE COUGH. VERY [place]. SLEEPING WELL DURING THE NIGHT. WILL MONITOR.
[2019-11-22 07:45] VITALS: BP 176/82
[2019-11-22 16:14] VITALS: BP 105/47
--- NOTE | 2019-11-22 18:29 | NUR ---
0700 ASSUME PATIENT CARE. PATIENT AOX4. PATIENT WAS UP IN HER CHAIR TODAY AND AMBULATING WELL. PATIENT DID C/O SOME PAIN FROM THE COUGHING, PRN MEDS GIVEN. PATIENT DID NOT WANT TO TAKE A BATH TODAY BUT CLEANED UP ON HER OWN. PATIENT HAS [address], CALL LIGHT IN REACH, AND DIDN'T EXPRESS MUCH CONCERN OR NEEDS THROUGHOUT THE SHIFT.
[2019-11-22 19:50] VITALS: BP 121/54
--- NOTE | 2019-11-22 20:03 | NUR ---
I AGREE WITH ASSESSMENTOF SENIOR SCHEDULERSobeida SAUNDERS
[2019-11-22 21:07] VITALS: BP 120/60
--- NOTE | 2019-11-23 03:38 | NUR ---
PATIENT ALERT AND ORIENTED X4. UP ADLIB IN ROOM WITH 02NC AT 5L IN PL[address]. DENIES PAIN THROUGHOUT THE NIGHT. WILL MONITOR. BLOOD SUGAR MONITORED PER ORDER. PLEASANT AND COOPERATIVE. VERY [place]. RESTING AT TIME OF NOTE.
[2019-11-23 09:03] VITALS: BP 148/63
[2019-11-23 11:00] VITALS: BP 148/63
[2019-11-23] MEDS ORDERED: PREDNISONE 20 M20 M1 PO (11:46)
[2019-11-23] MEDS ORDERED: KEFLEX500 M1 PO (11:46)
--- NOTE | 2019-11-23 13:52 | NUR ---
ASSUME PT CARE AT 0700. VSS. REASSESSMENT PER CHART. REPORTS SLEPT WELL. PATIENT ALERT AND ORIENTED X4. UP ADLIB IN ROOM WITH 02NC AT 5L IN [address]. DENIES PAIN, SOB. UP TO BS HAD BM TODAY. HAS FAIR APPETITE. CONTINUE TO BE ON IV ABT FOR PNEUMONIA. IV ON RIGHT FA. PATENT AND INTACT. BLOOD SUGAR MONITORED PER ORDER. PLEASANT AND COOPERATIVE. VERY [place]. DAUGHTER AT BEDSIDE. PT WILL BE DISHCARGE HOME TODAY. WILLL CONTINUE TO MONITOR.
--- NOTE | 2019-11-23 16:20 | NUR ---
DISCHARGE NOTE: SW reviewed chart and spoke with nursing and attending physician. Pt is medically stable for discharge home today with HH services. SW met with pt and dtr at bedside to discuss discharge plan. Pt is agreeable with HH services through [facility] as planned last week. inventory planner to fax finalized discharge orders/summary to HH when available. Contact info for HH in pt's discharge summary. Pt's family to provide transportation home. No additionals SW needs identified at this time, but is available to assist should needs arise.
== END 2019-11-23 15:22 | disposition home health service (06) | DRG 189 ==
LOC: ER 08:49 → 4N 11:11 → EROBS 11:11 → ICU 11:11 → 4N 11-18 21:05 → ENTRNSPT 11-23 15:04 → EDTRNSPTSTS 11-23 15:11 → 4N 11-23 15:22
PROVIDERS: Emergency Medicine; ADMIT Internal Medicine Geriatric Medicine
DX: J96.21 Acute and chronic respiratory failure with hypoxia (principal); I27.20 Pulmonary hypertension, unspecified; F03.90 Unspecified dementia, unspecified severity, without behavioral disturbance, psychotic disturbance, mood disturbance, and anxiety; E03.9 Hypothyroidism, unspecified; E78.5 Hyperlipidemia, unspecified; I10 Essential (primary) hypertension; I25.10 Atherosclerotic heart disease of native coronary artery without angina pectoris; J43.9 Emphysema, unspecified; Z80.9 Family history of malignant neoplasm, unspecified; Z90.12 Acquired absence of left breast and nipple; Z99.81 Dependence on supplemental oxygen; Z90.89 Acquired absence of other organs; Z90.710 Acquired absence of both cervix and uterus; Z79.2 Long term (current) use of antibiotics; Z87.891 Personal history of nicotine dependence; Z79.899 Other long term (current) drug therapy
CPT/HCPCS: 10203; 10790

== ENCOUNTER 2020-07-05 07:48 | Inpatient (IN) | payer OTHER ==
[~2020-07-05] VITALS: Ht 149.9 cm; Wt 49.4 kg
[2020-07-05 07:48] VITALS: BP 191/88
[~2020-07-05 07:48] MED LIST changes: +KEFLEX500 M1 PO; +OXYBUTYNIN 5 MG5 M2 PO; +PREDNISONE 20 M20 M1 PO; +TIROSINT112 MCG PO
[2020-07-05 08:40] LABS: ABSOLUTE NEUTROPHILS 11.8 thou/uL (1.4-8.2); BASOPHILS 0.1 % (0.0-2.0); EOSINOPHILS 1.2 % (0.0-3.0); HEMATOCRIT 38.2 % (37.0-47.0); HEMOGLOBIN 11.9 gm/dL (12.0-15.0); LYMPHOCYTES 2.6 % (24.0-44.0); MCH 25.4 pg (26.0-34.0); MCHC 31.3 g/dL (28.0-37.0); MCV 81.3 fL (80.0-100.0); MONOCYTES 3.3 % (1.0-8.0); PLATELET COUNT 160 thou/uL (150-400); POLYS 92.8 % (36.0-66.0); RDW 17.4 % (10.5-14.5); WBC 12.7 thou/uL (4.0-11.0)
[2020-07-05 09:02] LABS: APTT 29.7 Seconds (24.5-32.8); PROTIME 10.5 Seconds (9.3-11.4)
[2020-07-05 09:04] LABS: CALCIUM 9.3 mg/dL (8.5-10.1); CREATININE 1.3 mg/dL (0.6-1.0)
--- NOTE | 2020-07-05 09:06 | NUR ---
SPOKE TO DAUGHTER FRANCK HAQUE - PROVIDED AN UPDATE [phone]
[2020-07-05 09:13] LABS: ALBUMIN 3.6 g/dL (3.4-5.0); MAGNESIUM 1.9 mg/dL (1.8-2.4); TOTAL BILIRUBIN 0.5 mg/dL (0.2-1.0); TOTAL PROTEIN 7.1 g/dL (6.4-8.2); TROPONIN-I 0.06 ng/mL (<0.06)
[2020-07-05 09:17] LABS: BE(vivo) -1.6 mmol/L (-2 to +3); PCO2 38.4 mmHg (35.0-45.0); PO2 77.1 mmHg (80.0-100.0); pH 7.395 (7.360-7.450); sO2 95.4 % (92.0-98.0)
--- NOTE | 2020-07-05 10:57 | EKG ---
[facility] [place] [address] ELECTROCARDIOGRAM REPORT Name: VICKIE HAQUE Room #: 170-11 ADM IN M.R.#: [id number] Admission: 07/05/20 Attend Phys: Fantasma Rea Discharge: Date of : 31 Report #: [id number] THIS REPORT FOR: cc: Kt Garcias MD, David W. MD Santiago,Willam [facility] ~ THIS REPORT FOR: //name// [facility] ED Test Date: 2020-07-05 Test Time: 09:03:16 Pat Name: VICKIE HAQUE Department: Room: [facility] Gender: F Slip Seat Coverer: asim : 1935 Requested By: Nomi Knapp Order Number: [id number] MD: Willam Mejia Measurements Intervals [place] Rate: 106 P: 0 CT: 195 QRS: 69 QRSD: 82 T: 84 QT: 329 QTc: 437 Interpretive Statements Sinus tachycardia Atrial premature complex Left ventricular hypertrophy Compared to ECG 11/16/2019 09:05:19 Atrial premature complex(es) now present Left ventricular hypertrophy now present Sinus rhythm no longer present Myocardial infarct finding no longer present Electronically Signed On 07-05-2020 10:57:06 CDT by Willam Mejia [email or web address] <ELECTRONICALLY SIGNED> By: Willam Mejia MD, FACC 07/05/20 1057 2 2 Willam Mejia MD, FACC /EPI
--- NOTE | 2020-07-05 16:02 | NUR ---
YAMILA HAQUE (SON) CALLED WANTING UPDATE, PROVIDED UPDATE.
--- NOTE | 2020-07-05 16:17 | NUR ---
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 ADVISED I APPRECIATE THE ADVICE.
--- NOTE | 2020-07-05 16:20 | NUR ---
SPOKE TO DR. SR ON PULM CONSULT, DR. SR SAID SHE NEEDS A NEG. PRESSURE ROOM SO THAT SHE CAN BE PUT ON BIPAP OR AIRVO. REMBERTO SAID SHE NEEDS TO BE PUT BACK ON NRB IF SHE KEEPS DIPPING TO 88-89 ON THE HIGH-FLOW NASAL CANNULA
--- NOTE | 2020-07-05 16:50 | NUR ---
SPOKE TO JUAN IN REGARDS TO RT'S REQUEST. PT DROPS TO 85% ON 8L SO PT NEEDS ADMISSION ORDER CHANGED TO CRITICAL CARE TELE, HE STATED HE'D CHANGE IT.
[2020-07-05 22:30] VITALS: BP 159/74
[2020-07-06 00:10] VITALS: BP 157/79
[2020-07-06 02:36] VITALS: BP 170/91
--- NOTE | 2020-07-06 04:16 | NUR ---
Arrived from ER on NRB mask with O2 sat in the upper 90's. Medicated for back and left foot pain with some relief.C/O dry mouth and requested for lonzenges. Also requested for heating pad and aspercreme. DOUGHNUT BATTER MIXER notified and orders received. Hospital is out of heating pad currently , pt. notified. Negative PCR also reported to DOUGHNUT BATTER MIXER and housetrailer servicer. Afebrile. Pt. wearing brief and soaking wet. Female ext. cath in place. IV on left AC dc'd due to pt. had mastectomy. Limb alert bracelet applied and new IV placed on right wrist. She slept fair during the night. Left foot swollen and bruised from fall at home and bruising also around left eye.
[2020-07-06 11:45] VITALS: BP 144/65
[2020-07-06 20:30] VITALS: BP 145/68
[2020-07-07 03:30] VITALS: BP 146/75
--- NOTE | 2020-07-07 07:54 | NUR ---
SLEPT MOST OF SHIFT PAST SLEEPING PILL AND PAIN MEDICATION. MOVES SELF IN BED WITHOUT COMPLAINTS. DENIES COMPLAINST OF PAIN THIS AM. AT 2019 PATIENT SAT 82% on 4L/NC AFTER RT TURNED DOWN. PLACED ON 10L/NC AND NRB FOR 1HR TO RECOVER. PATIENT WAS IN PAIN AND ANXIOUS AT WHICH TIMES SHE BREATHS THROUGH MOUTH. MAINTAINED ON 10L/NC REST OF SHIFT. PATIENT STATES SHE IS ON 12-15L AT HOME. WORKING ON GOALS AND PLAN OF CARE FOR NOC. CONTINUE TO ASSES CLOSELY.
[2020-07-07 08:00] VITALS: BP 154/59; BP 154/89
[2020-07-07 11:30] VITALS: BP 149/85
[2020-07-07 16:30] VITALS: BP 130/56
--- NOTE | 2020-07-07 16:40 | NUR ---
AAOX4. MEDICATED FOR FOOT PAIN, THEN DOZES. ADULT DTR VISITS. O2 10L PER HIGH FLOW CANNULA. SR PER TELE. WILL CONTINUE TO FOLLOW CLOSELY.
--- NOTE | 2020-07-07 17:42 | NUR ---
Case opened to follow for dc planning. Medical Driver visited with the pt and her son Valerio at bedside. CM role introduced. Pt is a&ox4 and admits a little forgetful. She indicates that her son Valerio and dtr Raegan live with her. She lives in a ranch style home with one step to get inside. She no longer drives and her children help with transport, errands and house keeping chores. She has a cane, rwalker, w/c and home o2 per [employer]. She has a concentrator that goes to 5 and a liquid tank that goes to 10 liters. She usually stays around 4-5 liters. She is aware of her advanced lung disease. She tries to manager managed backup services and conserve her energy. She recently had a uti and several falls resulting in a foot fx. She is wearing a boot and is wbat. She is hoping to return home and interested in outpt therapy;however she and her son acknowledge that snf may be the best option. She has been at [facility] last year and loved it. Referral for SNF faxed to [facility] this evening per the dc enterprise resource planner. Message left for the liason to check on bed availability. Will f/u to see how she does with therapy tomorrow am.
[2020-07-07 20:30] VITALS: BP 140/58
[2020-07-08 04:45] VITALS: BP 143/60
[2020-07-08 06:01] LABS: ALBUMIN 2.8 g/dL (3.4-5.0); CALCIUM 9.3 mg/dL (8.5-10.1); CREATININE 0.8 mg/dL (0.6-1.0); PHOSPHORUS 3.6 mg/dL (2.5-4.9); POTASSIUM 4.5 mmol/L (3.5-5.1)
[2020-07-08 06:12] LABS: HEMATOCRIT 27.1 % (37.0-47.0); MCHC 32.1 g/dL (28.0-37.0); MCV 80.9 fL (80.0-100.0); RBC 3.35 mil/uL (4.20-5.00); RDW 16.8 % (10.5-14.5); WBC 2.8 thou/uL (4.0-11.0)
[2020-07-08 06:13] LABS: HEMOGLOBIN 8.7 gm/dL (12.0-15.0)
--- NOTE | 2020-07-08 08:11 | NUR ---
SLEPT MOST OF SHIFT. INCONTINENT AT TIMES. MOVES AROUND IN BED BY SELF. WORKING ON GOALS AND PLAN OF CARE FOR NOC. PROGRESSING SLOWLY TOWARDS DISCHARGE GOALS. CONTINUE TO ASSES.
[2020-07-08 08:20] VITALS: BP 147/62
--- NOTE | 2020-07-08 09:13 | NUR ---
ASSUMED CARE OF PT AT SHIFT CHANGE, Leno RUBI&0X4, HUMOROUS. AMB STATUS WAS UP W/ONE ASSIST, WALKER AND GAIT. SHE'S NOT BEEN UP YET THIS A.M. USES CALL LIGHT FOR NEEDS. SLIGHTLY SOA W/JUST CONVERSATIONS, SATS WNL ON 02. SEE SEPARATE INTERVENTION FOR ASSESSMENTS. ENCOURAGED HER TO USE CALL LIGHT FOR ANY NEEDS
--- NOTE | 2020-07-08 09:51 | NUR ---
FAXED REFERRAL TO [facility] RECEIVED CONFIRMATION AND LEFT MSG WITH TERI IN ADM.
[2020-07-08 12:05] VITALS: BP 127/47
[2020-07-08 16:20] VITALS: BP 124/53
--- NOTE | 2020-07-08 17:31 | NUR ---
[facility] can accept and will have a bed for the pt on Saturday. Pt and dtr Ai updated at bedside. They are agreeable to the dc plan unless pt improves enough with pulm status and mobility over the weekend to dc to home with family and outpt therapy. Care team updated.
[2020-07-08] MEDS ORDERED: MUCINEX1200 MG PO (17:38)
[2020-07-08 20:20] VITALS: BP 121/60; BP 124/51
--- NOTE | 2020-07-09 04:00 | NUR ---
ASSESSMENTS CHARTED, MEDS CHARTED GIVEN. PATIENT RESTING IN BED DURING SHIFT. SINUS RHYTHM WITH FIRST DEGREE DURING SHIFT. ON 8 LITERS OXYGEN. PATIENT WEARING PROTECTIVE SHOE ON LEFT FOOT WHICH HAS A FRACTURE. PATIENT DID NOT WANT TO BE AWOKE DURING THE NIGHT FOR BREATHING TREATMENTS. I REMINDED HER THAT BREATHING ISSUES IS WHY SHE CAME TO THE HOSPITAL.
[2020-07-09 04:45] VITALS: BP 151/87
[2020-07-09 04:57] LABS: HEMATOCRIT 28.9 % (37.0-47.0); HEMOGLOBIN 9.1 gm/dL (12.0-15.0); MCH 25.6 pg (26.0-34.0); MCHC 31.5 g/dL (28.0-37.0); MCV 81.4 fL (80.0-100.0); RBC 3.56 mil/uL (4.20-5.00); RDW 16.9 % (10.5-14.5); WBC 3.4 thou/uL (4.0-11.0)
[2020-07-09 08:40] VITALS: BP 146/64
[2020-07-09 11:50] VITALS: BP 135/81
--- NOTE | 2020-07-09 16:59 | NUR ---
ASSESSMENT CHARTED - MEDS PER NOV - NO CO'S OF PAIN OR NAUSEA. GREGORY SMALL AMOUNTS OF DIET ADEQUATE FLUID INTAKE. PT REFUSED TO GET OUT OF BED THIS SHIFT - STATED SHE JUST WANTED TO STAY IN THE BED AND NAP. SHERWINAHGTER IN TO SEE PATIENT THIS SHIFT. NO CO'S AT THE PRESENT TIME.
[2020-07-09 20:15] VITALS: BP 134/59
--- NOTE | 2020-07-09 22:38 | NUR ---
REPORT TO MIN RN PT VSS, TELE INTACT READING SR WITH A 1ST DEGREE AV BLOCK RATE OF 79.
--- NOTE | 2020-07-10 03:26 | NUR ---
ASSUMED CARE OF PT. PT C/O PAIN IN FOOT 05/09 AND COUGH. MEDS GIVEN SEE EMAR. REPOSITIONED FOR COMFORT. ON 6 NC. SCHEDULED BX RECIEVED, PT RESTING WELL. TELE MONITORED. FALL PREC IN PLACE AND CALL LIGHT AT REACH WILL CONT WITH POC TILL EOS.
[2020-07-10 04:45] VITALS: BP 151/70
[2020-07-10 08:25] VITALS: BP 143/57
[2020-07-10 12:35] VITALS: BP 154/62
[2020-07-10 16:10] VITALS: BP 128/48
--- NOTE | 2020-07-10 18:06 | NUR ---
ASSESSMENT CHARTED - MEDS PER MAR - NO CO'S OF PAIN OR NASUEA. GREGORY SMALL AMOUNTS OF DIET - PT STATING THAT SHE IS SO WORN OUT THAT SHE DOES NOT HAVE THE ENERGY TO PICK THE FORK UP TO FEED HERSELF. ASSISTED PATIENT WIT MEALS NEEDED. PT NOT WANTING TO GET OUT OF BED AGAIN TODAY - STATES L FOOT ONLY HURTS IF TOUCHED OR SHE MOVES IT - HAS NOT REQUESTED PAIN MEDS THIS SHIFT. PATIENT NAPS ON AND OFF THROUGHOUT THE DAY - DAUGHTER IN TO SEE PATIENT AND ASK ABOUT PLAN FOR DISCHARGED - INFORMED BEST ABLE FROM NOTES IN CHART. DAUGHTER GISSELL STATES SHE PLANS TO MOVE BACK IN WITH MOTHER ONCE SHE IS ABLE TO GO HOME. NO CO'S AT THE PRESENT TIME.
[2020-07-11 03:40] VITALS: BP 148/59
[2020-07-11 08:24] VITALS: BP 179/87
[2020-07-11] MEDS ORDERED: LEVOFLOXACIN500 MG PO (08:30)
[2020-07-11] MEDS ORDERED: PREDNISONE 5 MG5 M1 PO (08:32)
[2020-07-11] MEDS ORDERED: NYSTATIN100000 UNI SW&SWALLOW (09:22)
--- NOTE | 2020-07-11 12:12 | NUR ---
ASSUMED CARE AT CHANGE OF SHIFT. ALERT X4, PAIN MANAGED WITH MEDICATIONS. UP WITH ASSIST TO COMMODE. LEFT ORTHORPEDIC SHOE IN PLACE. 6L NASAL CANNULA, PT PURSE LIP BREATHS. BRUISE TO LEFT EYE AND LEFT FOOT FROM FALL AT HOME. PT TO DC TO SNF THIS AFTERNOON. NSR ON TELE. IV AND TELE REMOVED FOR DC. REVIED DC INFORMATION.
--- NOTE | 2020-07-20 10:33 | HC ---
[place] [address] CONSULTATION Name: VICKIE HAQUE Room #: 215-[facility] IN M.R.#: [id number] Admission: 07/05/20 Attend Phys: Fantasma Rea Discharge: 07/11/20 Date of : 31 Report #: [id number] THIS REPORT FOR: cc: Kt Garcias MD, David W. MD VanDenBerghe, Gregory R. MD ~ CC: Kt Rea [facility] ORTHOPEDIC CONSULTATION CHIEF COMPLAINT: Left foot pain. HISTORY OF PRESENT ILLNESS: The patient is a pleasant 84-year-old female seen today for evaluation of her left foot. The patient has history of COPD, pulmonary fibrosis requiring continuous O2 supplementation. She presented to the hospital with shortness of breath and has had a history of a fall on her way to her bed per her report as well as chart review. Son says he did not witness the fall, but is able to get her back in bed and put ice on her foot. PAST MEDICAL HISTORY: Extensive, bronchospasm, coronary artery disease, community-acquired pneumonia, chest pain, chronic kidney disease, chronic obstructive pulmonary disease, dyspnea, history of falls, pulmonary hypertension, sinus tachycardia. ALLERGIES: No known drug allergies. CURRENT MEDICATIONS: Please see current MAR. She currently reports that she is feeling better since she has a Darco shoe in place. She has not tried to ambulate. She is keeping her foot elevated in bed. PAST SURGICAL HISTORY: Left mastectomy, x 3, appendectomy, hysterectomy. ALLERGIES: No known drug allergies. SOCIAL HISTORY: Prior tobacco use. Denies alcohol or recreational drug use. PHYSICAL EXAMINATION: VITAL SIGNS: Temperature 36.6, pulse 103, BP 144/65, O2 sats 93% on 10 liters. GENERAL: The patient is alert, oriented, answering questions appropriately. MUSCULOSKELETAL: The patient's left foot demonstrates moderate dorsal foot swelling and ecchymosis. She localizes tenderness in the region of the mid foot and proximal forefoot. This is consistent with her fractures noted on the [address] [place] [address] CONSULTATION Name: VICKIE HAQUE Room #: 215-[facility] IN M.R.#: [id number] Admission: 07/05/20 Attend Phys: Fantasma Sylvester Tishaalla Discharge: 07/11/20 Date of : 31 Report #: [id number] radiograph. She is able to minimally flex and extend the toes. Dorsiflexes to almost neutral with respect to the ankle. The remainder of the leg is not swollen. She reports intact sensation to light touch. Compartments are soft. RADIOGRAPHS: Revealed nondisplaced proximal third and fourth metatarsal fractures. IMPRESSION: Left foot proximal third and fourth metatarsal fractures, closed, status post fall. PLAN: The patient may continue utilization of a Darco shoe. Advised the nurses on heel precautions. She may be weightbearing as tolerated, following her convalescence from COVID. The patient may return to the office in approximately 2-3 weeks' time with followup radiographs. The patient felt comfortable proceeding in this manner. <ELECTRONICALLY SIGNED> By: Blaze Ordoñez MD 07/20/20 1033 [id number] [id number] Blaze Ordoñez MD /nt
== END 2020-07-11 14:14 | DRG 871 ==
LOC: ER 07:48 → 3W 10:19 → EROBS 10:19 → 3W 21:10 → 2N 07-06 15:33
PROVIDERS: Emergency Medicine; ADMIT Hospitalist; ATTEND Hospitalist
DX: A41.9 Sepsis, unspecified organism (principal); J18.9 Pneumonia, unspecified organism; J96.21 Acute and chronic respiratory failure with hypoxia; N17.0 Acute kidney failure with tubular necrosis; J44.1 Chronic obstructive pulmonary disease with (acute) exacerbation; J44.0 Chronic obstructive pulmonary disease with (acute) lower respiratory infection; S92.335A Nondisplaced fracture of third metatarsal bone, left foot, initial encounter for closed fracture; S92.345A Nondisplaced fracture of fourth metatarsal bone, left foot, initial encounter for closed fracture; S00.12XA Contusion of left eyelid and periocular area, initial encounter; E03.9 Hypothyroidism, unspecified; E78.5 Hyperlipidemia, unspecified; I25.10 Atherosclerotic heart disease of native coronary artery without angina pectoris; I12.9 Hypertensive chronic kidney disease with stage 1 through stage 4 chronic kidney disease, or unspecified chronic kidney disease; N18.9 Chronic kidney disease, unspecified; W18.39XA Other fall on same level, initial encounter; W19.XXXA Unspecified fall, initial encounter; N32.81 Overactive bladder; J84.10 Pulmonary fibrosis, unspecified; F32.9 Major depressive disorder, single episode, unspecified; K59.00 Constipation, unspecified; Z20.828 Contact with and (suspected) exposure to other viral communicable diseases; Z85.3 Personal history of malignant neoplasm of breast; Y93.89 Activity, other specified; Y92.89 Other specified places as the place of occurrence of the external cause; Y99.8 Other external cause status; Z90.49 Acquired absence of other specified parts of digestive tract; Z90.710 Acquired absence of both cervix and uterus; Z90.12 Acquired absence of left breast and nipple; Z98.891 History of uterine scar from previous surgery; Z79.899 Other long term (current) drug therapy
CPT/HCPCS: 10081; 10879